=== PATIENT | male | born 1960 | race Caucasian/White ===

== ENCOUNTER 2016-12-30 15:04 | Emergency (ER) | payer BC ==
[~2016-12-30] VITALS: Ht 172.7 cm; Wt 86.5 kg
[~2016-12-30 15:04] MED LIST: METO1TAB71 PO; SIMV40TA2 PO
[2016-12-30 15:10] VITALS: Ht 172.7 cm; Wt 86.5 kg
[2016-12-30] MEDS ORDERED: SOTA120T (15:20)
[2016-12-30] MEDS ORDERED: TPRSR/25 PO (15:20)
[2016-12-30] MEDS ORDERED: LIDOCAINE IV BOLUS & DRIP IV STA (15:23)
--- NOTE | 2016-12-30 15:28 | EMERGENCY ROOM VISIT NOTE ---
History Report prepared by Erwin: Stephanie Dewitt Under the Supervision of: Dr. Joni Lind M.D. First contact with patient: 15:18 Chief Complaint: CHEST PAIN Stated Complaint: CHEST PAIN,HIGH BP Nursing Triage Summary: Pt states substernal cp that started approx 1350. Denies associated sx. States HR at home was 170-180's. Pt has a defib. History of Present Illness The patient is a 56 year old male who presents to the Emergency Room with complaints of constant chest pain beginning 90 minutes prior to arrival. The patient states that his heart rate at home was in the 170-180s. He has had V- Tach episodes before and states that this feels similar. The patient states that he was sitting when the pain came on. He denies dizziness. Patient has a defibrillator. 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 Patient denies dizziness. Review of Systems See HPI for pertinent positives & negatives. A total of 10 systems reviewed and were otherwise negative. Past Medical & Surgical Medical Problems: (1) Ventricular tachycardia (paroxysmal) Family History Patient reports no known family medical history. Social History Smoking Status: Never Smoker Alcohol Use: occasionally Housing Status: lives with family Occupation Status: employed Current/Historical Medications Scheduled Metoprolol Succinate (Metoprolol Succinate ER), 25 MG PO DAILY Simvastatin (Zocor), 40 MG PO HS Sotalol Hcl (Sotalol Hcl), 120 BID Allergies Coded Allergies: No Known Allergies (Verified , 12/30/16) Physical Exam Vital Signs Date Time Temp Pulse Resp B/P Pulse Ox O2 Delivery O2 Flow Rate FiO2 12/30/16 18:31 86 18 122/88 99 12/30/16 17:48 83 20 142/99 98 Room Air 12/30/16 17:20 80 132/93 96 Nasal Cannula 2.0 12/30/16 17:09 83 14 125/91 96 2.0 12/30/16 16:59 84 16 143/96 97 Nasal Cannula 2.0 12/30/16 16:49 84 16 128/91 96 Nasal Cannula 2.0 12/30/16 16:39 84 16 133/91 97 Room Air 2.0 12/30/16 16:30 86 140/89 97 12/30/16 16:19 84 16 135/95 97 2.0 12/30/16 16:09 85 16 132/94 97 Nasal Cannula 2.0 12/30/16 15:59 90 16 141/101 98 Room Air 2.0 12/30/16 15:47 102 16 143/96 97 Nasal Cannula 2.0 12/30/16 15:45 93 143/96 97 12/30/16 15:43 84 12/30/16 15:39 156 16 142/121 98 Nasal Cannula 2.0 12/30/16 15:28 Nasal Cannula 2.0 12/30/16 15:25 160 16 151/98 96 Room Air 12/30/16 15:20 160 12/30/16 15:10 160 18 145/107 96 Room Air Physical Exam GENERAL: Patient is a healthy-appearing well-nourished HEAD: Normocephalic atraumatic EYES: Ocular movements intact pupils equal and react to light OROPHARYNX mucous membranes are moist no exudates present no erythema or edema present NECK: Supple no nuchal rigidity CHEST: Good equal expansion LUNGS: Clear and equal to auscultation CARDIAC: Normal S1 and S2 ABDOMEN: Soft nontender no guarding BACK: No CVA tenderness EXTREMITIES: No pain upon palpation normal muscle strength in all groups no clubbing cyanosis or edema NEURO: Patient is following commands is answering questions appropriately. Alert and oriented x3 Cranial Nerves 2-12 grossly intact Medical Decision & Procedures ER Provider Diagnostic Interpretation: X-ray results as stated below per interpretation by me and the radiologist: CHEST ONE VIEW PORTABLE CLINICAL HISTORY: Chest pain. Hypertension. COMPARISON STUDY: Chest radiograph October 03, 2015. FINDINGS: A left subclavian pacemaker/AICD is in place. No pneumothorax or pleural effusion is present. There is no consolidation or evidence of pulmonary edema. Cardiomediastinal silhouette is stable. IMPRESSION: No acute cardiopulmonary findings. Electronically signed by: Sergio Woods M.D. 12/30/2016 3:39 PM Dictated Date/Time: 12/30/2016 3:38 PM Laboratory Results 12/30/16 15:30 Red Blood Count 5.52, Mean Corpuscular Volume 83.9, Mean Corpuscular Hemoglobin 29.9, Mean Corpuscular Hemoglobin Concent 35.6, Mean Platelet Volume 10.8, Neutrophils (%) (Auto) 62.7, Lymphocytes (%) (Auto) 25.1, Monocytes (%) (Auto) 7.6, Eosinophils (%) (Auto) 3.7, Basophils (%) (Auto) 0.3, Neutrophils # (Auto) 6.87, Lymphocytes # (Auto) 2.75, Monocytes # (Auto) 0.83, Eosinophils # (Auto) 0.40, Basophils # (Auto) 0.03 12/30/16 15:30 Test 12/30/16 15:30 White Blood Count 10.95 K/uL (4.8-10.8) Red Blood Count 5.52 M/uL (4.7-6.1) Hemoglobin 16.5 g/dL (14.0-18.0) Hematocrit 46.3 % (42-52) Mean Corpuscular Volume 83.9 fL (80-100) Mean Corpuscular Hemoglobin 29.9 pg (25-34) Mean Corpuscular Hemoglobin Concent 35.6 g/dl (32-36) Platelet Count 222 K/uL (130-400) Mean Platelet Volume 10.8 fL (7.4-10.4) Neutrophils (%) (Auto) 62.7 % Lymphocytes (%) (Auto) 25.1 % Monocytes (%) (Auto) 7.6 % Eosinophils (%) (Auto) 3.7 % Basophils (%) (Auto) 0.3 % Neutrophils # (Auto) 6.87 K/uL (1.4-6.5) Lymphocytes # (Auto) 2.75 K/uL (1.2-3.4) Monocytes # (Auto) 0.83 K/uL (0.11-0.59) Eosinophils # (Auto) 0.40 K/uL (0-0.5) Basophils # (Auto) 0.03 K/uL (0-0.2) RDW Standard Deviation 40.2 fL (36.4-46.3) RDW Coefficient of Variation 13.2 % (11.5-14.5) Immature Granulocyte % (Auto) 0.6 % Immature Granulocyte # (Auto) 0.07 K/uL (0.00-0.02) Anion Gap 12.0 mmol/L (3-11) Est Creatinine Clear Calc Drug Dose 78.3 ml/min Estimated GFR () 85.3 Estimated GFR (Non- 73.6 BUN/Creatinine Ratio 13.7 (10-20) Calcium Level 9.4 mg/dl (8.5-10.1) Total Bilirubin 0.6 mg/dl (0.2-1) Direct Bilirubin 0.2 mg/dl (0-0.2) Aspartate Amino Transf (AST/SGOT) 31 U/L (15-37) Alanine Aminotransferase (ALT/SGPT) 49 U/L (12-78) Alkaline Phosphatase 64 U/L (45-117) Total Creatine Kinase 119 U/L (39-308) Creatine Kinase MB 1.4 ng/ml (0.5-3.6) Creatine Kinase MB Ratio 1.2 (0-3.0) Troponin I < 0.015 ng/ml (0-0.045) Total Protein 7.8 gm/dl (6.4-8.2) Albumin 3.8 gm/dl (3.4-5.0) Lipase 181 U/L (73-393) Labs reviewed by ED physician. Medications Administered Medications (Trade) Dose Ordered Sig/Esequiel Route Start Time Stop Time Status Last Admin Dose Admin Amiodarone HCL/ Dextrose (Nexterone / D5w) 150 mg STK-MED ONCE .ROUTE 12/30/16 15:29 12/30/16 15:31 DC 12/30/16 15:37 150 MG Amiodarone HCL/ Dextrose (Nexterone / D5w) 360 mg STK-MED ONCE .ROUTE 12/30/16 15:29 12/30/16 15:31 DC 12/30/16 15:46 1 MG ECG Indication: chest pain Rate (beats per minute): 161 Rhythm: sinus tachycardia Findings: no acute ischemic change, no ectopy, other (Lofton Parkinson White) Change: 2nd ECG: Sinus rhythm with PVC, Old septal infarct, rate of 97, no acute ischemic changes. ED Course 1518: Past medical records reviewed. The patient was evaluated in room B1. A complete history and physical examination was performed. 1532: Cordarone Inj 150 mg IV. 1611: Nexterone / D5w 360 mg IV. 1612: I spoke with Dr. Anoop Rodriguez. He would like Dr. Glover to be consulted. 1616: I spoke with Dr. Glover - Cardiology. He said to stop the drip and see how the patient does. 1812: Upon reexamination the patient is hemodynamically stable. I discussed results and treatment plan with the patient. He verbalizes agreement and understanding. The patient is ready for discharge. Medical Decision The patient is a 56 year old male who presents to the ED with complaints of chest pain. Differential diagnosis: Etiologies such as cardiac ischemia, aortic dissection, pulmonary embolism, pneumonia, pneumothorax, musculoskeletal, infections, pericarditis, myocarditis , esophageal rupture, gastrointestinal, as well as others were entertained. This is a 56-year-old male who presents emergency department complaining of palpitations. Patient has a history of pacemaker placed at [facility] 2 months ago. The patient initially presented with what appear to be a wide- complex tachycardia however this converted to what then appeared to be a Sarah- Parkinson-White complex. Based on the patient's EKG he was given an amiodarone bolus in the emergency department which resulted in immediate cardioversion to a normal sinus rhythm. I then discussed the case with Dr. abhishek dale who asked me to discussed with Dr. Glover. . The patient's pacemaker was interrogated. It appears to be functioning normally. The patient does have a follow-up with [place] this week however I stressed the need to follow-up with Dr. Higuera. Patient and are in agreement with the treatment plan. Consults Time Called: 1610 Consulting Physician: Dr. Anoop Rodriguez Returned Call: [address] Anoop Rodriguez. He would like Dr. Glover to be consulted. Additional Consults: Time Called: 1614 Consulted Physician: Dr. Glover - Cardiology Returned Call: 1616 Additional Comments: I spoke with Dr. Glover - Cardiology. He said to stop the drip and see how the patient does. Impression Primary Impression: Palpitations Critical Care I have personally spent greater than 30 minutes of critical care time in the direct management of this patient. This includes bedside care, interpretation of diagnostic studies, and testing, discussion with consultants, patient, and family members, and other required patient management activities. This 30 minutes is in excess of all separately billable procedures. Scribe Attestation The scribe's documentation has been prepared under my direction and personally reviewed by me in its entirety. I confirm that the note above accurately reflects all work, treatment, procedures, and medical decision making performed by me. Departure Information Dispostion Home / Self-Care Referrals Barak Rosado M.D. (PCP) Forms HOME CARE DOCUMENTATION FORM, IMPORTANT VISIT INFORMATION, School Instructions, Work Instructions Patient Instructions ED Palpitations, My [facility] Additional Instructions FOLLOW UP WITH DR HIGUERA'S OFFICE THIS WEEK You have been examined and treated today on an emergency basis only. This is not a substitute for, or an effort to provide, complete comprehensive medical care. It is impossible to recognize and treat all injuries or illnesses in a single emergency department visit. It is therefore important that you follow up closely with DR Malachi Mock. Call as soon as possible for an appointment. Thank you for your time and consideration. I look forward to speaking with you again soon. Please don't hesitate to call us if you have any questions.
[2016-12-30] MEDS ORDERED: AMIODARONE 360MG / 200ML D5W ONE (15:29)
[2016-12-30] MEDS ORDERED: AMIODARONE 150MG / 100ML D5W ONE (15:29)
[2016-12-30] MEDS ORDERED: AMIODARONE HCL INJ 50 MG/ML 3 ML VIAL IV STA (15:32)
[2016-12-30 15:35] LABS: BASO % 0.3 %; BASO ABS # 0.03 K/uL (0-0.2); COMPLETE YES; EOS % 3.7 %; HEMATOCRIT 46.3 % (42-52); IG% 0.6 %; LYMPH % 25.1 %; LYMPH ABS # 2.75 K/uL (1.2-3.4); MEAN CELL VOLUME 83.9 fL (80-100); MEAN CORPUSCULAR HEMOGLOBIN 29.9 pg (25-34); MEAN CORPUSCULAR HGB CONC 35.6 g/dl (32-36); MEAN PLATELET VOLUME 10.8 fL (7.4-10.4); MONO % 7.6 %; NEUT % 62.7 %; PLATELET COUNT 222 K/uL (130-400); RED BLOOD COUNT 5.52 M/uL (4.7-6.1); WHITE BLOOD COUNT 10.95 K/uL (4.8-10.8)
--- NOTE | 2016-12-30 15:40 | DIAGNOSTIC IMAGING REPORT ---
CHEST ONE VIEW PORTABLE CLINICAL HISTORY: Chest pain. Hypertension. COMPARISON STUDY: Chest radiograph October 03, 2015. FINDINGS: A left subclavian pacemaker/AICD is in place. No pneumothorax or pleural effusion is present. There is no consolidation or evidence of pulmonary edema. Cardiomediastinal silhouette is stable. IMPRESSION: No acute cardiopulmonary findings. Electronically signed by: Sergio Woods M.D. 12/30/2016 3:39 PM Dictated Date/Time: 12/30/2016 3:38 PM
[2016-12-30 15:52] LABS: ALT/SGPT 49 U/L (12-78); BLOOD UREA NITROGEN 15 mg/dl (7-18); BUN/CREATININE RATIO 13.7 (10-20); CALCIUM 9.4 mg/dl (8.5-10.1); CARBON DIOXIDE 26 mmol/L (21-32); CHLORIDE 104 mmol/L (98-107); GLUCOSE 109 mg/dl (70-99); POTASSIUM 3.8 mmol/L (3.5-5.1); SODIUM 142 mmol/L (136-145)
[2016-12-30 15:57] LABS: ALKALINE PHOSPHATASE 64 U/L (45-117); AST/SGOT 31 U/L (15-37); CKMB/CK RATIO 1.2 (0-3.0)
[2016-12-30] MEDS ORDERED: AMIODARONE 360MG / 200ML D5W IV STA (16:11)
[2016-12-30 18:31] VITALS: BP 122/88; PULSE 86; O2SAT 99
[2017-03-10] MEDS ORDERED: ASPEC81 PO (08:55)
[2017-03-10] MEDS ORDERED: LPR25 PO (08:55)
== END 2016-12-30 18:32 | disposition home or self-care (01) ==
LOC: C.EDB 15:05
DX: R00.2 Palpitations (principal); Z95.0 Presence of cardiac pacemaker; Z79.899 Other long term (current) drug therapy

== ENCOUNTER → 2017-02-08 | Outpatient (CLI) | payer BC ==
[~2017-02-08] MED LIST changes: +AMIO200T4 PO; +ASPEC81 PO; +LPR25 PO; -METO1TAB71 PO; +SOTA120T; +TPRSR/25 PO
[2017-02-08 13:55] LABS: BLOOD UREA NITROGEN 17 mg/dl (7-18); BUN/CREATININE RATIO 17.7 (10-20); CALCIUM 8.8 mg/dl (8.5-10.1); CARBON DIOXIDE 27 mmol/L (21-32); CHLORIDE 109 mmol/L (98-107); CREATININE 0.95 mg/dl (0.60-1.40); GLUCOSE 92 mg/dl (70-99); POTASSIUM 4.7 mmol/L (3.5-5.1); SODIUM 141 mmol/L (136-145)
[2017-02-08 13:59] LABS: CHOLESTEROL 167 mg/dl (0-200); CHOLESTEROL/HDL RATIO 2.9; HDL CHOLESTEROL 58 mg/dl; TRIGLYCERIDES 80 mg/dl (0-150); VERY LOW DENSITY LIPOPROT CALC 16 mg/dl
== END | disposition home or self-care (01) ==
LOC: C.LABSPEC 12:08
PROVIDERS: ATTEND Internal Medicine
DX: E78.5 Hyperlipidemia, unspecified (principal)

== ENCOUNTER 2017-03-07 19:53 | Inpatient (IN) | payer BC ==
[~2017-03-07] VITALS: Ht 172.7 cm; Wt 85.5 kg
[~2017-03-07 19:53] MED LIST changes: -AMIO200T4 PO; -ASPEC81 PO; -LPR25 PO
[2017-03-07] MEDS ORDERED: SODIUM CHLORIDE 0.9% 500ML 500 ML IV STA (20:00)
[2017-03-07] MEDS ORDERED: AMIODARONE 360MG / 200ML D5W IV STA (20:00)
[2017-03-07] MEDS ORDERED: SODIUM CHLORIDE 0.9% 1000ML 1,000 ML IV STA (20:00)
[2017-03-07] MEDS ORDERED: AMIODARONE 150MG / 100ML D5W IV STA (20:01)
--- NOTE | 2017-03-07 20:14 | EMERGENCY ROOM VISIT NOTE ---
History Report prepared by Erwin: Howard Colmenares Under the Supervision of: Dr. Ahsan Tay D.O. First contact with patient: 19:53 Chief Complaint: CARDIAC ASSESSMENT Stated Complaint: VTACH/ DEFIBRILLATOR IS FIRING History of Present Illness The patient is a 56 year old male who presents to the Emergency Room with complaints of persistent tachycardia throughout the day today. The patient has an AICD that shocked him three times today. He was feeling completely fine yesterday. EMS notes that the patient was in V-tach en route. The patient denies chest pain, shortness of breath, leg pain or swelling. He has had the defibrillator since this past October. The patient follows up with Dr. Higuera, [facility] Litigation Paralegal. The patient was started on amiodarone at 1500 today which was ordered by Dr. Higuera, however he did not see him today. He did not receive any of the amiodarone in the ambulance en route to the ED. He was on Metoprolol and Sotalol prior to today. Today was meant to be his last dose of Sotalol. He did not miss any of his medications today. He denies recent weight changes. The patient is s/p ablation x 2 that was performed at [place]. He is not on any blood thinners. His primary care physician is Dr. Barnett. Source of History: patient, EMS Onset: today Position: other (heart) Quality: other (tachycardia) Timing: other (persistent) Associated Symptoms: No SOB, No chest pain Review of Systems See HPI for pertinent positives & negatives. A total of 10 systems reviewed and were otherwise negative. Past Medical & Surgical Medical Problems: (1) VENTRICULAR TACHYCARDIA (2) Ventricular tachycardia (paroxysmal) Family History No pertinent family history Social History Occupation Status: employed Current/Historical Medications Scheduled Amiodarone Hcl (Cordarone), 200 MG PO DIRECTED Metoprolol Succinate (Metoprolol Succinate ER), 25 MG PO DAILY Simvastatin (Zocor), 40 MG PO HS Sotalol Hcl (Sotalol Hcl), 120 BID Allergies Coded Allergies: No Known Allergies (Verified , 03/07/17) Physical Exam Vital Signs Date Time Temp Pulse Resp B/P Pulse Ox O2 Delivery O2 Flow Rate FiO2 03/07/17 22:38 74 108/83 03/07/17 22:30 108/83 03/07/17 22:20 76 99 03/07/17 22:15 68 96 03/07/17 22:10 117/78 03/07/17 22:05 71 98 03/07/17 22:00 114/74 03/07/17 21:55 76 97 03/07/17 21:50 112/77 03/07/17 21:45 75 98 03/07/17 21:40 123/79 03/07/17 21:35 77 97 03/07/17 21:30 119/78 03/07/17 21:28 77 98 03/07/17 21:20 114/84 03/07/17 21:18 78 98 03/07/17 21:10 117/82 03/07/17 21:08 80 97 03/07/17 21:00 120/83 03/07/17 20:58 79 98 03/07/17 20:50 129/81 03/07/17 20:48 78 98 03/07/17 20:43 77 99 03/07/17 20:40 129/84 03/07/17 20:35 80 126/81 03/07/17 20:33 79 98 03/07/17 20:30 128/81 03/07/17 20:30 83 03/07/17 20:23 81 100 03/07/17 20:20 126/85 03/07/17 20:13 168 96 03/07/17 20:10 110/69 03/07/17 20:03 177 98 03/07/17 19:58 178 03/07/17 19:57 137/115 03/07/17 19:53 100 Room Air 03/07/17 19:53 36.8 184 18 137/115 97 Room Air 03/07/17 19:53 100 Room Air 03/07/17 19:53 100 Room Air Physical Exam GENERAL: Patient is awake, alert, very anxious appearing, appears to be in moderate distress. EYES: The conjunctivae are clear. The pupils are round and reactive. EARS, NOSE, MOUTH AND THROAT: The nose is without any evidence of any deformity. Mucous membranes are moist tongue is midline NECK: The neck is nontender and supple. RESPIRATORY: Normal respiratory effort is noted there is no evidence of wheezing rhonchi or rales CARDIOVASCULAR: Regular and tachycardic, no definite murmur noted to auscultation. GASTROINTESTINAL: The abdomen is soft. Bowel sounds are present in all quadrants. Abdomen is nontender MUSCULOSKELETAL/EXTREMITIES: There is no evidence of gross deformity full range of motion is noted in the hips and shoulders SKIN: Skin is cool to touch and diaphoretic, no significant edema noted. NEUROLOGIC: Patient is awake alert and oriented x3. Medical Decision & Procedures ER Provider Diagnostic Interpretation: X-ray results as stated below per interpretation by me and the radiologist. CHEST ONE VIEW PORTABLE HISTORY: EVALUATE RESPIRATORY DISTRESS.DYSPNEA COMPARISON: Chest 12/30/2016. FINDINGS: The lungs are clear. Cardiac silhouette is normal in size. No pleural effusions. No pneumothorax. Left-sided single lead pacemaker/defibrillator. There are defibrillator pads overlying the left hemithorax. IMPRESSION: No acute process. Electronically signed by: Eric Orr M.D. 03/07/2017 8:39 PM Dictated Date/Time: 03/07/2017 8:38 PM Laboratory Results Test 03/07/17 20:39 Prothrombin Time 10.7 SECONDS (9.0-12.0) Prothromb Time International Ratio 1.0 (0.9-1.1) Activated Partial Thromboplast Time 27.5 SECONDS (21.0-31.0) Partial Thromboplastin Ratio 1.1 Total Bilirubin 0.7 mg/dl (0.2-1) Aspartate Amino Transf (AST/SGOT) 46 U/L (15-37) Alanine Aminotransferase (ALT/SGPT) 133 U/L (12-78) Alkaline Phosphatase 65 U/L (45-117) Total Protein 6.6 gm/dl (6.4-8.2) Albumin 3.4 gm/dl (3.4-5.0) Globulin 3.2 gm/dl (2.5-4.0) Albumin/Globulin Ratio 1.1 (0.9-2) Thyroid Stimulating Hormone (TSH) 1.860 uIu/ml (0.300-4.500) Free Thyroxine 1.25 ng/dl (0.80-1.60) Laboratory results per my review. Medications Administered Medications (Trade) Dose Ordered Sig/Esequiel Route Start Time Stop Time Status Last Admin Dose Admin Sodium Chloride 500 ml @ 999 mls/hr Q31M STAT IV 03/07/17 20:00 03/07/17 20:30 DC 03/07/17 20:19 999 MLS/HR Sodium Chloride (Nss 1000ml) 1,000 ml @ 125 mls/hr Q8H STAT IV 03/07/17 20:00 03/08/17 01:04 DC 03/07/17 20:49 125 MLS/HR Amiodarone HCL/ Dextrose (Nexterone / D5w) 360 mg UD STAT IV 03/07/17 20:00 03/07/17 20:01 DC 03/07/17 20:18 360 MG Amiodarone HCL/ Dextrose (Nexterone / D5w) 150 mg NOW STAT IV 03/07/17 20:01 03/07/17 20:02 DC 03/07/17 20:11 150 MG Metoprolol Tartrate (Lopressor Iv) 2.5 mg NOW STAT IV 03/07/17 20:19 03/07/17 20:20 DC 03/07/17 20:35 2.5 MG Potassium Chloride (Klor-Con M10) 30 meq NOW STAT PO 03/07/17 22:29 03/07/17 22:33 DC 03/07/17 22:38 30 MEQ Metoprolol Tartrate (Lopressor Iv) 2.5 mg NOW STAT IV 03/07/17 22:29 03/07/17 22:33 DC 03/07/17 22:38 2.5 MG ECG Indication: tachycardia Rate (beats per minute): 181 Rhythm: other (wide complex ) Findings: LBBB (favored), other (likely consistent with previous ventricular tachycardia) Change: Repeat EKG: Normal sinus rhythm at 82, no acute ST segment abnormalities, no ectopy, no change compared to Dec 30 2016. ED Course 1953: The patient was evaluated in room B1. A complete history and physical examination were performed. 2000: Amiodarone HCl / Dextrose 360 mg IV, NSS 1000 ml @ 125 mls/hr, NSS 500 ml @ 999 mls/hr. 2001: Amiodarone HCl / Dextrose 150 mg IV. 2006: Amiodarone started through IV. 2011: Discussed the case with Dr. Sparrow, Litigation Paralegal. Recommended Lopressor. 2019: Lopressor 2.5 mg IV. 2019: Patient is back in normal sinus rhythm. 2156: Discussed the case with Dr. Barnett, Sonar Watchstander. The patient will be evaluated. Medical Decision Prior records/ancillary studies reviewed. Triage Nursing notes reviewed. The patient's history was concerning for palpitations. Differential diagnosis: Etiologies such as premature contractions, electrolyte abnormality, cardiac dysrhythmia, thyroid dysfunction, pulmonary embolism, infection, gastrointestinal, as well as others were entertained. The patient is a 56-year-old male who presented to the emergency department for an evaluation of palpitations and ventricular tachycardia. The patient is a history of ventricular tachycardia his defibrillator went off 3 times today. 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 He was started on amiodarone in the ambulance and this was continued in the emergency department. He was also given a fluid bolus. The patient's condition was discussed with his primary cardiology group. I also discussed his case with his primary care physician. The patient's condition significantly improved. The ventricular tachycardia was replaced with mostly sinus rhythm with small runs of nonsustained ventricular tachycardia. I discussed the patient's laboratory and radiographic studies with him. Consults Time Called: 1999 Consulting Physician: Dr. Sparrow, Litigation Paralegal. Returned Call: 2011 2011: Discussed the case with Dr. Sparrow, Litigation Paralegal. Additional Consults: Time Called: 2144 Consulted Physician: Dr. Barnett, Sonar Watchstander Returned Call: 2156 Additional Comments: 2156: Discussed the case with Dr. Barnett, Sonar Watchstander. The patient will be evaluated. Recommended Lopressor. Impression Primary Impression: Ventricular tachycardia Additional Impressions: Palpitations Elevated troponin Critical Care I have personally spent greater than 45 minutes of critical care time in the direct management of this patient. This includes bedside care, interpretation of diagnostic studies, and testing, discussion with consultants, patient, and family members, and other required patient management activities. This 45 minutes is in excess of all separately billable procedures. Scribe Attestation The scribe's documentation has been prepared under my direction and personally reviewed by me in its entirety. I confirm that the note above accurately reflects all work, treatment, procedures, and medical decision making performed by me. Departure Information Dispostion Being Evaluated By Hospitalist Patient Instructions My [facility] Problem Qualifiers
[2017-03-07] MEDS ORDERED: METOPROLOL TARTRATE 1 MG/ML VIAL IV STA ×2 (20:19→22:29)
[2017-03-07] MEDS ORDERED: AMIO200T4 PO (20:33)
--- NOTE | 2017-03-07 20:42 | DIAGNOSTIC IMAGING REPORT ---
CHEST ONE VIEW PORTABLE HISTORY: EVALUATE RESPIRATORY DISTRESS.DYSPNEA COMPARISON: Chest 12/30/2016. FINDINGS: The lungs are clear. Cardiac silhouette is normal in size. No pleural effusions. No pneumothorax. Left-sided single lead pacemaker/defibrillator. There are defibrillator pads overlying the left hemithorax. IMPRESSION: No acute process. Electronically signed by: Eric Orr M.D. 03/07/2017 8:39 PM Dictated Date/Time: 03/07/2017 8:38 PM
[2017-03-07 20:48] LABS: BASO % 0.3 %; BASO ABS # 0.02 K/uL (0-0.2); COMPLETE YES; EOS % 2.1 %; HEMATOCRIT 43.2 % (42-52); IG% 0.3 %; LYMPH % 21.4 %; LYMPH ABS # 1.64 K/uL (1.2-3.4); MEAN CELL VOLUME 86.4 fL (80-100); MEAN CORPUSCULAR HEMOGLOBIN 30.4 pg (25-34); MEAN CORPUSCULAR HGB CONC 35.2 g/dl (32-36); MONO % 9.2 %; NEUT % 66.7 %; PLATELET COUNT 179 K/uL (130-400); WHITE BLOOD COUNT 7.68 K/uL (4.8-10.8)
[2017-03-07 20:58] LABS: PARTIAL THROMBOPLASTIN RATIO 1.1; PROTHROMBIN TIME (PATIENT) 10.7 SECONDS (9.0-12.0)
[2017-03-07 21:05] LABS: BUN/CREATININE RATIO 14.6 (10-20); CREATININE 1.1 mg/dl (0.60-1.40); MAGNESIUM 2.1 mg/dl (1.8-2.4); POTASSIUM 3.4 mmol/L (3.5-5.1)
[2017-03-07 21:13] LABS: CALCIUM 8.7 mg/dl (8.5-10.1)
[2017-03-07 21:20] LABS: ALB/GLOB RATIO 1.1 (0.9-2); THYROID STIMULATING HORMONE 1.86 uIu/ml (0.300-4.500)
[2017-03-07] MEDS ORDERED: POTASSIUM CHLORIDE 10 MEQ TABCR PO STA (22:29)
[2017-03-07] MEDS ORDERED: ACETAMINOPHEN 325 MG TAB PO PRN (22:30)
[2017-03-07] MEDS ORDERED: AMIODARONE IV BOLUS / DRIP IV STA (22:30)
[2017-03-07] MEDS ORDERED: LORAZEPAM 0.5 MG TAB PO PRN (22:45)
--- NOTE | 2017-03-07 23:51 | HISTORY & PHYSICAL EXAMINATION ---
DATE OF ADMISSION: 03/07/2017 A 56-year-old male admitted through the Emergency Room with recurrent ventricular tachycardia. PRESENT ILLNESS: The patient with known recurrent ventricular tachycardia, first diagnosed in 09/2015. He was admitted to [facility] at that time on 10/03/2015 with ventricular tachycardia and recurrent episodes of lightheadedness. At that time, he was seen in cardiology consultation by Dr. Sparrow and Dr. Hong. The patient was thought to have right-sided ventricular tachycardia and he was treated with metoprolol. Subsequently, the patient was seen by Dr. Higuera. He was referred to [facility]. He had an extensive workup done. He had a cardiac catheterization which showed normal coronaries. He had a defibrillator implanted in 10/2016. He also had an ablation procedure at that time and he had another ablation procedure just within the last 2 months. The patient continues to be seen and followed very closely by Dr. Higuera. The patient stated that on Saturday, 2 days ago, he was cutting grass outside and he did experience an episode where he realized that the defibrillator discharged. Yesterday, Saturday, he was doing fine throughout the day but today he had multiple episodes and his defibrillator fired on 3 separate occasions. Ambulance was called. The patient was brought to the Emergency Room. He was found to be in ventricular tachycardia. His rate was under control. It remained in the 70s and 60s, but he was in ventricular tachycardia. He felt some lightheadedness with these episodes, but he had no chest pain, no headache, no syncope, no abdominal pain, no nausea or any other associated symptoms. Earlier today, the patient was in touch with Dr. Higuera. He was on sotalol, so Dr. Higuera did discontinue his sotalol and he started him on amiodarone loading dose today. He received a total of 800 mg in 2 separate doses. He was also on simvastatin but that was discontinued because of the addition of amiodarone. He was continued on metoprolol succinate 25 mg daily. In the Emergency Room, the patient was evaluated by Dr. Tay. He was started on IV amiodarone. Dr. Tay did speak with Dr. Sparrow who was on-call for Dr. Higuera. Dr. Sparrow recommended a dose of metoprolol tartrate 2.5 mg IV which was administered. At this time, the patient is resting comfortably. He is in a sinus rhythm but he continues to have short episodes of ventricular tachycardia, 2, 3 and 4 beats that I was able to observe on the monitor while I was in his room, but he is completely asymptomatic. The patient is continued on amiodarone IV for now. He is being admitted to PCU with telemetry for further evaluation and cardiology consultation and adjustments of his medications and decision whether the patient will need to be transferred back to [facility], but I will leave that up to Dr. Higuera when he sees him in the morning. PAST MEDICAL HISTORY: 1. Ventricular tachycardia as noted above with the first detected episode on 10/03/2015 which required hospitalization. Initially treated with metoprolol. Subsequently, he has had a defibrillator. He had a cardiac catheterization which showed normal coronary arteries. He had 2 ablation procedures and unfortunately he continued to have recurrent episodes of ventricular tachycardia. 2. Hypercholesterolemia, treated. He has been on simvastatin 40 mg daily and his numbers have been well controlled. He was taking simvastatin up until today when it was discontinued because of the addition of amiodarone. 3. History of elevated PSA. He has had a urology consultation in the past and had prostate biopsies which were benign. 4. History of colonic polyps. All benign. Consistent with tubular adenomas. SOCIAL HISTORY: He is . He has 2 children. He denied any smoking or alcohol or any drugs. No excessive coffee, tea or soft drinks. He is still working, he works with the [employer]. FAMILY HISTORY: His mother is in her 80s. She has type 2 diabetes mellitus, on insulin, arterial hypertension, hypothyroidism, osteoarthritis. She also has a history of breast cancer. She is doing quite well. His father at age 54, had a pulmonary embolism, this was back in 1986. One brother in 2000 at age 54 in a motorcycle accident. One brother has aortic valve replacement. He had a bicuspid valve. He was 60 years old at that time. His family history is significant for coronary artery disease and ventricular arrhythmias and cardiomyopathy and also for hemochromatosis. ALLERGIES: None. CURRENT MEDICATIONS: As noted, today his sotalol was discontinued, he was started on amiodarone. His simvastatin was discontinued. He was continued on metoprolol succinate 25 mg daily. REVIEW OF SYSTEMS: Overall, he has been doing quite well since his last ablation. He has not had any problem as far as any headache or dizziness or lightheadedness. The lightheadedness occurs only with his episodes of ventricular tachycardia, but no syncope. No chest pain, pressure or tightness. No shortness of breath. No abdominal pain, no nausea, no vomiting. No problem with his bowel movements. No problem urinating. No pain in his back or extremities. PHYSICAL EXAMINATION: GENERAL: Well developed, in no acute distress. He is resting quite comfortably. His recorded weight is 88.1 kg, height 172.7 cm, BMI 29.5. VITAL SIGNS: On arrival to the Emergency Room, his blood pressure was 137/115, his pulse rate was 184, respiration 18, temperature 36.8, oxygen saturation was 100% on room air. Subsequently, his heart rate came down to 81. His blood pressure came down to 110/69. His heart rate and blood pressure remain in normal range since his arrival. SKIN: Warm and dry. No rash. HEENT: He usually wears glasses, not at this time. No mucosal abnormalities in his nose, mouth or throat. NECK: Supple. Nontender. No adenopathy, no thyromegaly. No JVD. No carotid bruit. CHEST: Defibrillator in place. HEART: Regular heart sounds. Short runs of ventricular tachycardia as noted. No murmur, rub or gallop. LUNGS: Clear. ABDOMEN: Soft, nontender, without organomegaly or masses. BACK: No spinal tenderness. EXTREMITIES: No edema, clubbing or cyanosis. No joint or muscle tenderness. Good pulses except for absent right dorsalis pedis pulse. NEUROLOGIC: He is alert and oriented. There is no evidence of any deficit. LABORATORY TESTS: WBC count 7680, hemoglobin 15.1, hematocrit 43.2, platelet count 179,000. Prothrombin time 10.7, INR 1.0, PTT 27.5. Sodium 143, potassium 3.4, chloride 111, CO2 23, BUN 16, creatinine 1.1, glucose 143, calcium 8.7, magnesium 2.1, total bilirubin 0.7, AST 46, ALT 133, alkaline phosphatase 65, total protein 6.6, albumin 3.4. TSH 1.860, free T4 1.25. Troponin I 0.118. His chest x-ray showed no acute process. Defibrillator noted in place. ECG showed ventricular tachycardia at 181 bpm. ASSESSMENT: 1. Recurrent ventricular tachycardia. 2. Status post implant of a pacer defibrillator in 10/2016. 3. Hyperlipidemia. 4. History of elevated PSA with negative prostate biopsy. 5. History of colonic polyp. 6. Minimal hypokalemia. 7. Elevated troponin I, most likely related to demand. PLAN: The patient was admitted to PCU with telemetry. Resuscitation level 1. As noted in the Emergency Room, he was started on IV amiodarone and he was given a dose of metoprolol tartrate 2.5 mg IV. I ordered one dose of potassium chloride 30 mEq p.o. and an additional dose of metoprolol tartrate 2.5 mg IV. His heart rate slowed down to the 60s. At this point, I do not observe any ventricular arrhythmias on the monitor, he is completely in a sinus rhythm. The patient will be admitted to PCU with telemetry. Resuscitation level 1. All his laboratory tests were ordered. Cardiac isoenzymes and serial electrocardiograms ordered. As far as medications, he will be continued on the continuous IV amiodarone protocol. Also, he will be given metoprolol tartrate 2.5 mg every 6 hours. Cardiology consultation was requested from Dr. Higuera. He will see him in the morning and decide on further treatment and further recommendation. I spoke with Mr. Valladares and his who was at his bedside. They both understand the situation and what we are doing at this point. He seems to be quite comfortable. IRMA
[2017-03-08] VITALS (7 sets, daily range): BP systolic 117–136; BP diastolic 78–90; PULSE 65–73; TEMP 36.3–36.8; O2SAT 97–100; Ht 172.7 cm; Wt 85.5 kg
[2017-03-08] MEDS ORDERED: METOPROLOL TARTRATE 1 MG/ML VIAL ONE (00:55)
[2017-03-08] MEDS: METOPROLOL TARTRATE 1 MG/ML VIAL IV. SCH ×2 (00:56→06:08)
[2017-03-08] MEDS: SODIUM CHLORIDE 0.9% 1000ML 1,000 ML IV SCH ×3 (01:04→20:28)
[2017-03-08 01:28] LABS: CKMB/CK RATIO 1.6 (0-3.0)
[2017-03-08] MEDS: AMIODARONE / D5W 200 ML IV SCH ×2 (02:10→14:01)
[2017-03-08 07:23] LABS: BASO % 0.1 %; BASO ABS # 0.01 K/uL (0-0.2); COMPLETE YES; IG% 0.2 %; LYMPH % 18.2 %; LYMPH ABS # 1.49 K/uL (1.2-3.4); MEAN CELL VOLUME 87.3 fL (80-100); MEAN CORPUSCULAR HEMOGLOBIN 30.1 pg (25-34); MEAN CORPUSCULAR HGB CONC 34.5 g/dl (32-36); MEAN PLATELET VOLUME 11.1 fL (7.4-10.4); MONO % 6.5 %; PLATELET COUNT 185 K/uL (130-400); RED BLOOD COUNT 4.81 M/uL (4.7-6.1)
[2017-03-08 07:55] LABS: BUN/CREATININE RATIO 14.4 (10-20); CALCIUM 8.2 mg/dl (8.5-10.1); CREATININE 0.94 mg/dl (0.60-1.40); MAGNESIUM 2.2 mg/dl (1.8-2.4); POTASSIUM 3.9 mmol/L (3.5-5.1)
[2017-03-08 08:07] LABS: CKMB/CK RATIO 1.1 (0-3.0)
[2017-03-08] MEDS: ASPIRIN 81 MG ECTAB PO SCH (08:07)
[2017-03-08] MEDS: POTASSIUM CHLORIDE 20 MEQ TABCR PO SCH ×2 (08:07→20:29)
--- NOTE | 2017-03-08 08:37 | PROGRESS NOTE ---
DATE: 03/08/2017 DATE: 03/08/2017. SUBJECTIVE: A 56-year-old male admitted with recurrent ventricular tachycardia. The patient has had 2 ablation procedures in the past at [facility], he also has a pacer defibrillator in place. The patient was admitted. In the Emergency Room, he was started on IV amiodarone. Dr. Higuera just changed his medication yesterday and he gave him the first oral dose. He received 2 doses of 400 mg each. He came to the Emergency Room after his pacer fired on 3 separate occasions. The patient had a restful night, uneventful. He denied any headache or dizziness or lightheadedness. Denied any chest pain, no shortness of breath. No abdominal pain, no nausea, no vomiting. No pain in his back or extremities. PHYSICAL EXAMINATION: GENERAL: Well developed in no distress. VITAL SIGNS: Blood pressure 132/80, pulse 69, respiration 18, temperature 36.8, oxygen saturation 97% on room air. SKIN: Warm and dry. No rash. HEAD, EYES, EARS, NOSE, AND THROAT: No evidence of any mucosal abnormality. NECK: Supple. Nontender. No lymph node or thyroid enlargement. No JVD. CHEST: Pacer defibrillator in place. HEART: Regular heart sounds. No evident murmur, rub, or gallop. LUNGS: Clear. ABDOMEN: Soft, nontender. No organomegaly or masses. BACK: No spinal tenderness. EXTREMITIES: No edema, clubbing, or cyanosis. Review of his rhythm through the night, he has remained in sinus rhythm. He had multiple episodes where he had 2 and on very occasional 3-beat ventricular beats, but he is completely asymptomatic. LABORATORY TESTS: WBC count 8,200, hemoglobin 14.5, hematocrit 42%, platelet count 185,000. Sodium 144, potassium 3.9, chloride 114, CO2 23, BUN 14, creatinine 0.94, glucose 104, calcium 8.2, magnesium 2.2. His troponin I was 0.118 on admission. It was checked every 6 hours. The second number was 0.195 and the one from this morning is starting to drift down to 0.165. His electrocardiogram this morning showed a sinus rhythm. He had ventricular arrhythmias 2 successive beats noted on his tracing. ASSESSMENT: 1. Recurrent ventricular tachycardia. 2. Hyperlipidemia. He was on simvastatin but that was discontinued just yesterday by Dr. Higuera because he was started on amiodarone. 3. Minimal hypokalemia, it was 3.4 on admission and it was corrected. PLAN: 1. Continuing the same medications. He is on the IV amiodarone and he is also receiving metoprolol tartrate 2.5 mg IV every 6 hours. 2. Cardiology consultation has been requested. The patient will be seen by Dr. Higuera this morning. He will decide on further course of his treatment for his ventricular tachycardia. He already stopped his sotalol yesterday and started him on the oral amiodarone and I expect that this is the medication he is going to be using. 3. His condition is stable. He is completely asymptomatic.
--- NOTE | 2017-03-08 10:04 | CARDIOLOGY CONSULTATION ---
DATE OF CONSULTATION: 03/08/2017 REQUESTING: Dr. Barnett. Dear Dr. Barnett: It was a pleasure to see Fredy today in consultation with regard to his recurrent ventricular tachycardia status post ICD shock x3. As you know, he has a very complex cardiac arrhythmia with recurrent ventricular tachycardia. This past weekend he had additional episodes of nonsustained VT on his monitor. In addition, received one episode of ATP. We were notified again on Saturday that he was having additional ventricular arrhythmias. In discussion with the EP service at [facility], a decision was made to have him stop his sotalol on morning and switch him over to amiodarone with loading of 400 mg t.i.d. for 5 days. His had contacted us at 3:00 in the afternoon, noting that he just did not feel well and he was feeling palpitations and felt like he had received ATP again. I instructed her to give him an additional dose of amiodarone 4 hours later with the first dose at 3:00 in the afternoon, the second dose at 7:00 p.m. Around 7:00 p.m., his defibrillator actually shocked him x3 and he was brought to the Emergency Room for further evaluation. In the Emergency Room, his EKG reveals a wide complex tachycardia at 181 beats per minute with a left bundle morphology. He was given IV amiodarone and beta blockers and converted back to sinus rhythm and he is currently on IV amiodarone, resting comfortably. He notes he is fatigued, but outside of that, he denies any chest pain, chest pressure, chest heaviness. He denies any shortness of breath, PND, orthopnea. He denies any current palpitations or lightheadedness. Yesterday, with his palpitations, he did feel lightheadedness and did feel weak. There was no loss of consciousness. He denies any bleeding, bruising, dark stools, black stools, fevers, chills, sweats, cough productive of sputum. Rest review of systems otherwise negative. PAST MEDICAL HISTORY: 1. Symptomatic monomorphic ventricular tachycardia at rate of 220 beats per minute. By EP study, it was left-sided, just under the aortic valve, with the first ablation in 10/2016. 2. Status post second VT ablation from both the right ventricle and the left ventricle, involving the same portion of the interventricular septum, 12/2016, with recurrent symptomatic monomorphic VT, discharged on Tikosyn. 3. Mild nonischemic cardiomyopathy with an ejection fraction in the range of 45-50%. 4. Cardiac MRI with a mildly dilated left ventricle, EF 43%, with diffuse global hypokinesis. 5. Status post single-chamber defibrillator with a St. Teto Ellipse VR next generation device. 6. Family history of cardiomyopathy. 7. Significant fatigue, on high-dose beta blockers. 8. No evidence of epicardial coronary artery disease by cardiac catheterization 10/2016. FAMILY HISTORY: He had a brother who of congestive heart failure secondary to hemochromatosis. He has another brother who has aortic stenosis and cardiomyopathy and atrial fibrillation. His dad at 55 from blood clots. Mom is living in her 80s with palpitations. SOCIAL HISTORY: Denies any tobacco or alcohol. He is . He rarely drinks alcohol. 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 Of note, he has to climb ladders and often is working more than 200 feet above the ground. ALLERGIES: No known drug allergies. MEDICATIONS: Reviewed in electronic medical record. PHYSICAL EXAMINATION: GENERAL: He is awake, alert, oriented x3. He does appear fatigued this morning. VITAL SIGNS: His heart rate is 69, his respirations are 18, his blood pressure 132/80, his sats 97%. HEENT: Mildly reduced carotid upstrokes. No evidence of carotid bruits. Jugular venous pressure appeared normal. Sclerae are anicteric. His hearing is normal. LUNGS: Clear to auscultation bilaterally. No rales, rhonchi or wheezing. HEART: Regular rate and rhythm. No murmurs, rubs or gallops. ABDOMEN: Soft, nontender, nondistended, positive bowel sounds. EXTREMITIES: No clubbing, cyanosis or edema. PSYCHIATRIC: His affect appeared appropriate. EARLY CHILDHOOD EDUCATION COORDINATOR: Last evening the longest run he had was a 6-beat run of nonsustained VT. Today, he has just had ventricular couplets. LABORATORY STUDIES: His CBC is normal. His BMP is normal with the exception of his potassium, initially it was 3.4, it was 3.9 this morning. His troponin peaked at 0.195. His TSH and free T4 are normal. His coags are normal. Chest x-ray was read as no active disease. EKG: Wide complex tachycardia at 181 beats per minute with a left bundle morphology. IMPRESSION: 1. Recurrent symptomatic monomorphic ventricular tachycardia. 2. Status post ICD shock x3. 3. Mild nonischemic cardiomyopathy. 4. Single chamber defibrillator with a St. Teto Ellipse. 5. No evidence of epicardial coronary artery disease by cardiac catheterization 10/2016. 6. Failure to suppress his ventricular arrhythmias with Tikosyn. My recommendation would be to continue with IV amiodarone and I would overlap oral and IV for 48 hours. I would start oral amiodarone 400 mg t.i.d. in addition to his IV amiodarone and continue that today and tomorrow, and if he has no recurrent ventricular arrhythmias, he could be discharged on Saturday morning. If there is room for beta blockers based on his heart rate and blood pressure as he is currently on beta blockers, I would continue with them as well. 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 I have asked him to determine what his benefits would be with short-term and long-term disability as this will be an important part of consideration as to whether he can or cannot work long-term, especially if we are financially going to make their lives more difficult if we consider disability. I would keep is K+ >4.0 and his Mg >2.0. Additionally, if he has recurrent ventricular tachycardia on amiodarone, at that point we would have to consider a third VT ablation. At this point, the EP service and Fredy are not ready to proceed with another ablation. I will continue to follow with you. Thank you for allowing us to participate in his care. IRMA
[2017-03-08] MEDS: AMIODARONE 200 MG TAB PO SCH ×3 (10:20→21:53)
[2017-03-08] MEDS: METOPROLOL TARTRATE 25 MG TAB PO SCH ×2 (10:20→20:29)
[2017-03-08 13:07] LABS: CKMB/CK RATIO 0.8 (0-3.0)
[2017-03-09] VITALS (8 sets, daily range): BP systolic 131–144; BP diastolic 79–85; PULSE 68–76; TEMP 36.5–36.9; O2SAT 95–99
[2017-03-09] MEDS: AMIODARONE / D5W 200 ML IV SCH ×2 (02:58→12:25)
[2017-03-09] MEDS: SODIUM CHLORIDE 0.9% 1000ML 1,000 ML IV SCH ×2 (05:49→16:28)
[2017-03-09 06:25] LABS: BASO % 0.3 %; BASO ABS # 0.03 K/uL (0-0.2); COMPLETE YES; EOS % 1.6 %; HEMATOCRIT 43.6 % (42-52); IG% 0.3 %; LYMPH % 16.7 %; LYMPH ABS # 1.48 K/uL (1.2-3.4); MEAN CELL VOLUME 87.4 fL (80-100); MEAN CORPUSCULAR HEMOGLOBIN 30.1 pg (25-34); MEAN CORPUSCULAR HGB CONC 34.4 g/dl (32-36); MEAN PLATELET VOLUME 10.7 fL (7.4-10.4); MONO % 8.5 %; NEUT % 72.6 %; PLATELET COUNT 182 K/uL (130-400); RED BLOOD COUNT 4.99 M/uL (4.7-6.1); WHITE BLOOD COUNT 8.85 K/uL (4.8-10.8)
[2017-03-09 07:04] LABS: BUN/CREATININE RATIO 9.4 (10-20); CALCIUM 8.5 mg/dl (8.5-10.1); CREATININE 0.92 mg/dl (0.60-1.40); MAGNESIUM 2.2 mg/dl (1.8-2.4); POTASSIUM 3.9 mmol/L (3.5-5.1)
[2017-03-09] MEDS: AMIODARONE 200 MG TAB PO SCH ×3 (07:29→19:54)
[2017-03-09] MEDS: ASPIRIN 81 MG ECTAB PO SCH (07:29)
[2017-03-09] MEDS: METOPROLOL TARTRATE 25 MG TAB PO SCH ×2 (07:30→19:50)
[2017-03-09] MEDS: POTASSIUM CHLORIDE 20 MEQ TABCR PO SCH ×2 (07:30→19:54)
--- NOTE | 2017-03-09 10:23 | PROGRESS NOTE ---
DATE: 03/09/2017 A 56-year-old male admitted with recurrent ventricular tachycardia. The patient has had 2 ablation procedures in the past and he also has a pacer defibrillator in place. He does see Dr. Higuera in his cardiology followup and the procedures have been done at [facility]. The patient was admitted. Dr. Higuera started him on loading dose of amiodarone the day he was admitted and he had 2 doses of 400 mg each. After admission, he was started on IV amiodarone. He was seen in cardiology consultation by Dr. Higuera. Oral amiodarone was ordered in addition to his IV amiodarone to overlap for 48 hours. He is also on metoprolol, initially it was given to him IV and then Dr. Higuera changed it to metoprolol tartrate 25 mg twice a day. Overall, he has been doing well. He denied any headache or dizziness or lightheadedness. No chest pain, no shortness of breath. No abdominal pain, no nausea, no vomiting. Tolerating his diet. No pain in his back or extremities. He has been ambulating in the hallway without any problem. Review of his monitor showed runs of 4-beat V-tach over the last 24 hours only. He does have isolated PVCs and also 2 PVCs in succession. PHYSICAL EXAMINATION: GENERAL: Well developed, in no distress. VITAL SIGNS: Blood pressure 144/85, pulse 68, respiration 18, temperature 36.9, oxygen saturation 95% on room air. SKIN: Warm and dry. No rash. HEENT: No mucosal abnormality. NECK: No JVD. No adenopathy. HEART: Regular heart sounds. No evident murmur, rub or gallop. LUNGS: Clear. ABDOMEN: Soft and benign. BACK: No spinal tenderness. EXTREMITIES: No edema, clubbing or cyanosis. TODAY'S LABORATORY TESTS: WBC count 8850, hemoglobin 15, hematocrit 43.6, platelet count 182,000. Sodium 144, potassium 3.9, chloride 113, CO2 23, BUN 9, creatinine 0.92, glucose 100, calcium 8.5, magnesium 2.2. ASSESSMENT: 1. Recurrent ventricular tachycardia. 2. Mild cardiomyopathy. PLAN: 1. Continuing amiodarone, both IV and oral for another 24 hours. 2. Continue ambulation. 3. Continuing metoprolol tartrate 25 mg twice a day, he seems to be tolerating it. 4. We will continue monitoring his laboratory tests.
--- NOTE | 2017-03-09 15:15 | Cardiology Follow-Up ---
Cardiology Follow-Up Date of Service Mar 09, 2017. Cardiology Follow-Up SUBJECTIVE: 56-year-old man with mild cardiomyopathy and recurrent ventricular tachycardia ( status post ICD) who was admitted 03/07/2017 with further episodes of ventricular tachycardia Which elicited 3 separate ICD shocks. He is followed by Dr. Higuera, who saw him in consultation and initiated both oral and IV amiodarone. Uneventful night, monitor shows only 3 and 4 beat runs of ventricular tachycardia with nothing sustained. He feels well presently, no chest discomfort, dyspnea, or palpitations. Ambulating about the hallways without difficulty. PHYSICAL EXAMINATION: No distress. Vitals: BP 144/85, pulse 68 and regular, respirations 18 and nonlabored. Skin: No unusual lesions or ecchymosis. HEENT: Unremarkable. Neck: Jugular venous pulse at the clavicle at 90, no carotid bruits. Lungs: Clear and equal breath sounds bilaterally. No wheezing or crackles. Cardiac: Regular rhythm with normal S1 and S2. No murmur or gallop. Abdomen: Benign. Extremities: Nontender without edema. Intact peripheral pulses. Neurologic: Normal affect, nonfocal DATA: ECG today showed sinus rhythm at 69 ppm with occasional PVCs, otherwise unremarkable. QTC interval was 0.47. Potassium 3.9. Magnesium 2.2. IMPRESSION: 1. Ventricular tachycardia, no sustained recurrence on IV/p.o. amiodarone ( loading). 2. Mild nonischemic cardiomyopathy (EF 45-50%). 3. Single-chamber ICD. 4. No evidence of CAD (catheterization October 2016). DISCUSSION: Hemodynamically stable with only short, nonsustained runs of ventricular tachycardia during IV/p.o. amiodarone loading. Continue current regimen over the next 24 hours. Will continue to follow along.
[2017-03-10] MEDS: AMIODARONE / D5W 200 ML IV SCH (02:56)
[2017-03-10] MEDS: SODIUM CHLORIDE 0.9% 1000ML 1,000 ML IV SCH (03:00)
[2017-03-10 04:05] VITALS: BP 133/85; PULSE 68; TEMP 36.6; O2SAT 97
[2017-03-10 06:26] LABS: BASO % 0.3 %; BASO ABS # 0.03 K/uL (0-0.2); COMPLETE YES; EOS % 1.3 %; HEMATOCRIT 42.9 % (42-52); IG% 0.2 %; LYMPH % 18.5 %; MEAN CELL VOLUME 87.4 fL (80-100); MEAN CORPUSCULAR HEMOGLOBIN 30.1 pg (25-34); MEAN CORPUSCULAR HGB CONC 34.5 g/dl (32-36); MEAN PLATELET VOLUME 10.6 fL (7.4-10.4); MONO % 8.2 %; NEUT % 71.5 %; PLATELET COUNT 186 K/uL (130-400); RED BLOOD COUNT 4.91 M/uL (4.7-6.1); WHITE BLOOD COUNT 9.75 K/uL (4.8-10.8)
[2017-03-10 07:05] LABS: BUN/CREATININE RATIO 8.8 (10-20); CALCIUM 8.5 mg/dl (8.5-10.1); CREATININE 0.96 mg/dl (0.60-1.40); MAGNESIUM 2.2 mg/dl (1.8-2.4); POTASSIUM 3.8 mmol/L (3.5-5.1)
[2017-03-10] MEDS: ASPIRIN 81 MG ECTAB PO SCH (07:22)
[2017-03-10] MEDS: AMIODARONE 200 MG TAB PO SCH (07:22)
[2017-03-10] MEDS: POTASSIUM CHLORIDE 20 MEQ TABCR PO SCH (07:22)
[2017-03-10 07:55] VITALS: BP 143/92; PULSE 69; TEMP 36.6; O2SAT 97
[2017-03-10 08:21] VITALS: O2SAT 99
[2017-03-10] MEDS ORDERED: ASPEC81 PO (08:55)
[2017-03-10] MEDS ORDERED: LPR25 PO (08:55)
--- NOTE | 2017-03-10 08:59 | Discharge Instructions ---
Discharge Instructions Date of Service Mar 10, 2017. Admission Reason for Admission: Ventricular Tachycardia Discharge Discharge Diagnosis / Problem: Recurrent Ventricular Tachycardia Discharge Goals Goal(s): Decrease discomfort, Improve function, Increase independence, Improve disease control Activity Recommendations Activity Limitations: as noted below (Off work until Dr. Higuera releases you.) . Current Hospital Diet Patient's current hospital diet: AHA Diet (Heart Healthy) Discharge Diet Recommended Diet: AHA Diet (Heart Healthy) Pending Studies Studies pending at discharge: no Laboratory Results Lipid Panel Test 02/08/17 09:10 Range/Units Triglycerides Level 80 0-150 mg/dl Cholesterol Level 167 0-200 mg/dl HDL Cholesterol 58 mg/dl LDL Cholesterol Direct 103 mg/dl Cholesterol/HDL Ratio 2.9 LDL Cholesterol, Calculated mg/dl Medical Emergencies . Who to Call and When: Medical Emergencies: If at any time you feel your situation is an emergency, please call 911 immediately. . Non-Emergent Contact Non-Emergency issues call your: Primary Care Provider, [employer] . . "Provider Documentation" section prepared by Barak Barnett. . VTE Core Measure Inpt VTE Proph given/why not?: Treatment not indicated
[2017-03-10] MEDS ORDERED: [UNRECOGNIZED DRUG - REMARK] ONE (09:00)
[2017-03-10] MEDS: METOPROLOL TARTRATE 25 MG TAB PO SCH (09:06)
[2017-03-10 09:11] VITALS: BP 143/92; PULSE 69; TEMP 36.6; O2SAT 99
--- NOTE | 2017-03-10 10:07 | Cardiology Follow-Up ---
Cardiology Follow-Up Date of Service Mar 10, 2017. Cardiology Follow-Up SUBJECTIVE: 56-year-old man with mild cardiomyopathy and recurrent ventricular tachycardia ( status post ICD) who was admitted 03/07/2017 with further episodes of ventricular tachycardia which elicited 3 separate ICD shocks. He is followed by Dr. Higuera, who saw him in consultation and initiated both oral and IV amiodarone. Uneventful night, monitor showed no significant ectopy. He feels well presently, no chest discomfort, dyspnea, or palpitations. Ambulating about the hallways without difficulty. Plan is for discharge today. PHYSICAL EXAMINATION: No distress. Vitals: BP 143/92, pulse 69 and regular, respirations 16. Skin: No unusual lesions or ecchymosis. HEENT: Unremarkable. Neck: Jugular venous pulse at the clavicle at 90, no carotid bruits. Lungs: Clear and equal breath sounds bilaterally. No wheezing or crackles. Cardiac: Regular rhythm with normal S1 and S2. No murmur or gallop. Abdomen: Benign. Extremities: Nontender without edema. Intact peripheral pulses. Neurologic: Normal affect, nonfocal DATA: CBC unremarkable. Normal electrolytes with potassium 3.8 and magnesium 2.2. IMPRESSION: 1. Ventricular tachycardia, no recurrence overnight. 2. Mild nonischemic cardiomyopathy (EF 45-50%). 3. Single-chamber ICD. 4. No evidence of CAD (catheterization October 2016). DISCUSSION: Hemodynamically stable with no further significant ventricular ectopy or ventricular tachycardia. Okay for discharge on t.i.d. amiodarone 200 mg. Case discussed with Dr. Barnett. Follow up with Dr. Higuera.
--- NOTE | 2017-03-10 10:12 | PROGRESS NOTE ---
DATE: 03/10/2017 SUBJECTIVE: A 56-year-old male admitted with recurrent ventricular tachycardia. He has had prior ablations on 2 separate occasions and placement of a pacer defibrillator. The procedures were done at [facility]. He sees Dr. Higuera on a regular basis for his cardiology followup and control of his arrhythmias. The patient was admitted. He was started on IV amiodarone. He was seen by Dr. Higuera in cardiology consultation. Oral amiodarone was also added overlap for 48 hours with IV amiodarone. Overall, his condition is stable. He has not had any recurrent significant ventricular tachycardia. He did have times around the 4 beat, but no more complex than that. He is tolerating the amiodarone. He denied any headache or dizziness or lightheadedness. He is ambulating without any problem. No chest pain, pressure or tightness. No shortness of breath. No abdominal pain, no nausea, and no vomiting. No problem with his bowel movements or urination. PHYSICAL EXAMINATION: GENERAL: Well developed in no distress. VITAL SIGNS: Blood pressure 143/92, pulse 69, respirations 16, temperature 36.6, and oxygen saturation 97% on room air. SKIN: Warm and dry. No rash. HEENT: No evidence of any mucosal abnormalities. HEART: Regular heart sounds. No murmur, rub, or gallop. LUNGS: Clear. ABDOMEN: Soft and nontender without organomegaly or masses. BACK: No spinal tenderness. EXTREMITIES: No edema, clubbing, or cyanosis. LABORATORY TESTS: WBC count 9750, hemoglobin 14.8, hematocrit 42.9, and platelet count 186,000. Sodium 143, potassium 3.8, chloride 111, CO2 of 25, BUN 8, creatinine 0.96, glucose 87, calcium 8.5, and magnesium 2.2. ASSESSMENT: 1. Recurrent ventricular tachycardia. 2. Hypercholesterolemia. PLAN: 1. He is stable. He has not had any recurrence of his significant ventricular tachycardia. 2. He completed a 48-hour course of IV amiodarone this morning. 3. The patient was discharged home. He would continue the oral amiodarone as prescribed by Dr. Higuera. He already has a prescription at home and he started this actually the day he was admitted. 4. His metoprolol was increased to 25 mg twice a day. Prior to that, he was on 25 mg of metoprolol succinate one a day and I asked him for now to take the metoprolol succinate 25 mg twice a day. On the discharge instruction, it is indicated that he is on the metoprolol tartrate 25 twice a day, but I asked him not to get prescription for the tartrate at this point until he sees Dr. Higuera and decide what dose of beta bello is going to tolerate. 5. He took 1 dose of lorazepam 0.5 mg p.o. last night and it did help him relax. He is quite anxious about his condition and situation and going back to work. He was asking for prescription to keep it on hand just in case he needs it at home and I did write a prescription for lorazepam 0.5 mg twice a day as needed and gave him 40 tablets with 1 refill. 6. I instructed him to call Dr. Higuera's office tomorrow and schedule an appointment with him this coming week. Dr. Higuera will decide on the tapering protocol for his amiodarone and decide on the dose of the metoprolol and which form he is going to keep him on. 7. He was instructed to stay out of work until Dr. Higuera releases him to go back. 8. I will see him back in the office in the next 7-10 days. He will call in case of any problem.
--- NOTE | 2017-03-23 05:46 | DISCHARGE SUMMARY ---
DISCHARGE DIAGNOSES: 1. Recurrent ventricular tachycardia. 2. Hyperlipidemia. DISCHARGE MEDICATIONS: Include: 1. Aspirin 81 mg daily. 2. Metoprolol tartrate 25 mg twice a day. 3. Amiodarone 200 mg tablets to take two tablets three times a day for 5 days; then two tablets twice a day for 2 weeks and then 200 mg daily. CONSULTATION: Hardik Higuera DO in cardiology. HISTORY OF PRESENT ILLNESS: A 56-year-old male, admitted through the Emergency Room with recurrent ventricular tachycardia. The patient was first diagnosed in 2014 in September with ventricular tachycardia. He was admitted on 10/03/2015. He had recurrent episodes of lightheadedness with recurrent sustained ventricular tachycardia. This was thought to be right ventricular in nature. He was treated. Subsequently, he was seen by Dr. Higuera. He was referred to [facility]. He had an extensive evaluation. He had a cardiac catheterization. He did not have evidence of any coronary artery disease. He had a pacer defibrillator implanted in October 2016. He had prior ablation procedures on 2 separate occasions. He sees Dr. Higuera for close followup. He stated that, 2 days prior to his admission, he was cutting grass outside. He did experience an episode where he realized that the defibrillator discharged. On the day prior to his admission, he was doing fine throughout the day, but on the day of admission he had multiple episodes where the defibrillator discharged on 3 separate locations. Ambulance was called. He was brought to the Emergency Room. He was noted to be in ventricular tachycardia. Initially, his rate was quite rapid, but subsequently it stabilized and he was in the 70s and 60s. He did have ventricular tachycardia. He had no chest pain. No shortness of breath. No headache. No syncopal episodes. Earlier, on the day of admission, he was in touch with Dr. Higuera. He was on sotalol. His sotalol was discontinued. Dr. Higuera started him on amiodarone. He had 2 doses prior to his admission. He was also continued on metoprolol succinate 25 mg daily. In the Emergency Room, he was seen by Dr. Tay. He was started on IV amiodarone. He was also given metoprolol tartrate 2.5 mg IV. His ventricular tachycardia, resolved. He was resting comfortably. He continued to have short runs of V-tach with 2, 3 and 4 beats. The patient was admitted for further treatment. PAST MEDICAL HISTORY, SOCIAL HISTORY AND FAMILY HISTORY: All as noted. ALLERGIES: None. MEDICATIONS ON ADMISSION: All as noted on his home medication list. He had pain on simvastatin, but when the amiodarone was started Dr. Higuera discontinued it. PHYSICAL EXAMINATION AND ADMISSION LABORATORY TESTS: All as noted. HOSPITAL COURSE: The patient was admitted to PCU with telemetry. Resuscitation level 1. He was continued on IV amiodarone. He did receive IV metoprolol tartrate. His potassium was borderline low, was corrected. In addition to the amiodarone intravenously, he was also given metoprolol tartrate 2.5 mg IV every 6 hours. Cardiology consultation was requested. He was seen by Dr. Higuera. He was continued on IV amiodarone, changed to metoprolol tartrate 25 mg twice a day. The patient remained asymptomatic. He was resting comfortably. His monitor showed at times 2 beats of ventricular complexes, but not more than 4-beat ventricular tachycardia; rare occurrences. In addition to his IV amiodarone, he was started on loading dose of oral amiodarone with overlapping the IV and the oral doses for 48 hours as recommended. His condition remains stable. He was completely asymptomatic. He was tolerating his diet. He was ambulating. The patient was discharged home. Medications as noted above. He was to follow up with me in the office and also to follow up with Dr. Higuera. The goal at this time is to see how he does with the amiodarone and see if that controls his ventricular tachycardia. We will decide on any other treatment modalities in the future.
== END 2017-03-10 10:05 | disposition home or self-care (01) | DRG 309 ==
LOC: ENRESERVTM → ENRESERVDT → EDBD 19:53 → C.EDB 19:57 → C.2T 22:42
PROVIDERS: ADMIT Internal Medicine; ATTEND Internal Medicine
DX: I47.2 Ventricular tachycardia (principal); I42.9 Cardiomyopathy, unspecified; R00.0 Tachycardia, unspecified; E78.00 Pure hypercholesterolemia, unspecified; Z82.49 Family history of ischemic heart disease and other diseases of the circulatory system; Z83.3 Family history of diabetes mellitus; Z95.810 Presence of automatic (implantable) cardiac defibrillator; E87.6 Hypokalemia

== ENCOUNTER → 2017-08-20 | Outpatient (CLI) | payer BC ==
[~2017-08-20] MED LIST changes: +AMIO200T4 PO; +ASPEC81 PO; +LPR25 PO; -SIMV40TA2 PO; -SOTA120T; -TPRSR/25 PO
[2017-08-20 13:41] LABS: BLOOD UREA NITROGEN 20 mg/dl (7-18); BUN/CREATININE RATIO 16.9 (10-20); CARBON DIOXIDE 27 mmol/L (21-32); CHLORIDE 105 mmol/L (98-107); GLUCOSE 94 mg/dl (70-99); POTASSIUM 4.4 mmol/L (3.5-5.1); SODIUM 140 mmol/L (136-145)
[2017-08-20 13:52] LABS: CHOLESTEROL 280 mg/dl (0-200); CHOLESTEROL/HDL RATIO 4.6; HDL CHOLESTEROL 61 mg/dl; TRIGLYCERIDES 123 mg/dl (0-150); VERY LOW DENSITY LIPOPROT CALC 25 mg/dl
== END | disposition home or self-care (01) ==
LOC: C.LABSPEC 12:25
PROVIDERS: ATTEND Internal Medicine
DX: Z00.00 Encounter for general adult medical examination without abnormal findings (principal); E78.5 Hyperlipidemia, unspecified; R97.20 Elevated prostate specific antigen [PSA]

== ENCOUNTER → 2017-08-21 | Outpatient (CLI) | payer BC | END | disposition home or self-care (01) | LOC: C.LABSPEC 13:25 | PROVIDERS: ATTEND Internal Medicine | DX: Z12.11 Encounter for screening for malignant neoplasm of colon (principal) ==

== ENCOUNTER → 2018-03-03 | Outpatient (CLI) | payer BC ==
[~2018-03-03] MED LIST changes: -ASPEC81 PO; +ASPI-320 PO
[2018-03-03 14:00] LABS: BLOOD UREA NITROGEN 17 mg/dl (7-18); CALCIUM 8.8 mg/dl (8.5-10.1); CARBON DIOXIDE 25 mmol/L (21-32); CHOLESTEROL 265 mg/dl (0-200); CREATININE 1.32 mg/dl (0.60-1.40); GLUCOSE 93 mg/dl (70-99); POTASSIUM 3.7 mmol/L (3.5-5.1); SODIUM 138 mmol/L (136-145)
[2018-03-03 14:11] LABS: LDL CHOLESTEROL (DIRECT) 193 mg/dl
== END | disposition home or self-care (01) ==
LOC: C.LABSPEC 12:36
PROVIDERS: ATTEND Internal Medicine
DX: I10 Essential (primary) hypertension (principal); E78.5 Hyperlipidemia, unspecified

== ENCOUNTER 2021-03-10 21:12 | Observation (INO) ==
[2021-03-10] MEDS ORDERED: NITROGLYCERIN SL 0.4 MG/TAB TAB SL STA ×2 (22:17→22:56)
[2021-03-10 22:27] LABS: Basophils # (auto) 0.04 K/uL (0-0.2); Basophils % (auto) 0.4 %; Eosinophils # (auto) 0.28 K/uL (0-0.5); Eosinophils % (auto) 2.7 %; Hematocrit (blood only) 47.7 % (42-52); Hemoglobin 16.3 g/dL (14.0-18.0); Immature Granulocytes # (auto) 0.04 K/uL (0.00-0.02); Immature Granulocytes % (auto) 0.4 %; Lymphocytes # (auto) 2.85 K/uL (1.2-3.4); Lymphocytes % (auto) 27.6 %; Mean Corpuscular Hgb Conc 34.2 g/dL (32-36); Mean Corpuscular Volume 90.7 fL (80-100); Mean Platelet Volume 12.4 fL (7.4-10.4); Monocytes # (auto) 0.99 K/uL (0.11-0.59); Monocytes % (auto) 9.6 %; Neutrophils # (auto) 6.11 K/uL (1.4-6.5); Neutrophils % (auto) 59.3 %; Platelet Count 217 K/uL (130-400); RDW Coefficient of Variation 13.6 % (11.5-14.5); RDW Standard Deviation 44.8 fL (36.4-46.3); Red Blood Count 5.26 M/uL (4.7-6.1); White Blood Count 10.31 K/uL (4.8-10.8)
[2021-03-10 22:46] LABS: Partial Thromboplastin Ratio 0.9; Partial Thromboplastin Time 23.3 Seconds (21.0-31.0); Prothrombin Time 9.9 Seconds (9.0-12.0)
[2021-03-10] MEDS ORDERED: ASPIRIN CHEW 324 MG PO STA (22:56)
[2021-03-10 23:01] LABS: Alanine Aminotransferase 33 U/L (12-78); Albumin Globulin Ratio 1.1 (0.9-2); Albumin Level 3.9 gm/dl (3.4-5.0); Alkaline Phosphatase 71 U/L (45-117); Aspartate Aminotransferase 22 U/L (15-37); BUN Creatinine Ratio 17.3 (10-20); Bilirubin,Total 0.7 mg/dl (0.2-1); Blood Urea Nitrogen 24 mg/dl (7-18); Calcium 8.8 mg/dl (8.5-10.1); Carbon Dioxide 25 mmol/L (21-32); Chloride 107 mmol/L (98-107); Creatinine Clr Calc Pharmacy 55.6 ml/min; Est GFR (Non-African American) 53.5; Globulin 3.6 gm/dl (2.5-4.0); Glucose 104 mg/dl (70-99); Magnesium 2.1 mg/dl (1.8-2.4); Potassium 3.7 mmol/L (3.5-5.1); Sodium 141 mmol/L (136-145); Total Protein 7.5 gm/dl (6.4-8.2); Troponin I < 0.015 ng/ml (0-0.045)
--- NOTE | 2021-03-11 00:08 | History & Physical Report ---
Date of Service March 11, 2021 Assessment & Plan (1) Chest pain: 67-year-old male with a past medical history of nonischemic cardiomyopathy and paroxysmal V. tach status post defibrillator placement, chronic systolic heart failure with EF 40% admitted for ACS rule out. Chest pain Initial troponin negative, no signs of ischemia on EKG - heart score 3, low risk - nitro PRN, EKG with CP, - repeat troponin - interrogate defibrillator - ASA 325 in ED, daily 81 ASA, statin - daily ekg HFrEF - cont losartan, metoprolol, - Entresto can be started 48 hours after last losartan dose - would benefit from discussions regarding diet improvement with heart failure, CAD etc. Vtach - cont amiodarone Slurred speech - momentary episode with chest pain, CT head wo con negative - can consider MRI for TIA, but low suspicion DVT ppx: lovenox FEN/GI: heart healthy, low salt Code status: full code Dispo: PCU (2) Systolic heart failure: (3) Nonischemic cardiomyopathy: (4) Ventricular tachycardia (paroxysmal): History of Present Illness 60-year-old male with past medical history of nonischemic cardiomyopathy (EF 40%), paroxysmal V. tach status post defibrillator placement who presents to the emergency department for episode of chest pain. 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 Higuera told him he was not supposed to eat hot dogs anymore because he had 3 hot dogs the previous day. Earlier this evening around 8 PM he had a piece of fried chicken and soon afterwards felt pressurized chest pain. He denies this feeling like chicken was stuck in his chest, reflux, burning. Denies having eaten more than usual for dinner but does say that he had a rather large lunch [employer] today. Stated around this time he also experienced some blurring of vision and difficulty speaking. was at the bedside states that for some seconds to a minute he was slurring his speech and incomprehensible but that quickly went away on its own. They are able to call EMS and his pain was relieved in the ER with nitro. He has no history of stroke, denies any symptoms of numbness, tingling, weakness. He denies any history of a artery disease or diabetes. He states that approximately 3 years ago when he first had the episode of V. tach that required defibrillator placement he also had a cardiac catheterization at that time which was negative for any coronary artery disease. He denies the defibrillator going off earlier today. He does state that his appoint with Dr. Higuera they had discussed starting him on Entresto but he was unable to pick that up at the pharmacy today. Primary Care Provider: Barak Barnett MD Allergies Allergy/AdvReac Type Severity Reaction Status Date / Time No Known Allergies Allergy Verified 03/10/21 23:21 Home Medications Medication Instructions Recorded Confirmed Type amiodarone 200 mg PO QAM 03/10/21 03/10/21 History aspirin 81 mg PO QAM 03/10/21 03/10/21 History atorvastatin 40 mg PO QPM 03/10/21 03/10/21 History furosemide [Lasix] 0 mg PO DAILY PRN 03/10/21 03/10/21 History losartan 50 mg PO QAM 03/10/21 03/10/21 History metoprolol succinate 50 mg PO BID 03/10/21 03/10/21 History Past Med/Surg History Medical History Nonischemic cardiomyopathy EF 40%, 07/2020 Systolic heart failure Surgical History S/P ablation of ventricular arrhythmia ablation of right and left ventrice 12/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 Family History (Updated 03/11/21 @ 04:28 by Yoana Catherine MD) Brother Heart disease Father Heart failure Mother Heart disease Social History Smoking Status: Never smoker Hx Alcohol Use: No Hx Substance Use: No Preferred Language: Bengali Communication Ability: Effective Collections Curator Required: No Beliefs That Will Affect Care: None Current Living Situation: Spouse Feels Safe at Home: Yes Safety Concerns: Feels Safe At This Time Assistive Devices: None Review of Systems Review of Systems: All systems reviewed & are unremarkable except as noted in Subjective Physical Exam Physical Exam: Constitutional: in no apparent distress, sitting comfortably in bed. Eyes: EOMI, pupils equal and reactive bilaterally, no scleral icterus Cardiac: RRR, no murmurs, gallops or rubs. Normal S1, S2, defibrillator in place Pulm: CTA BL, no wheezes, rhonchi, crackles or rubs, moving air well throughout both lungs Abd: soft, nontender, nondistended, normal bowel sounds, no rebound or guarding Extremities: 2+ peripheral pulses, no edema Neuro: no focal deficits, moving all 4 limbs, A&Ox3 Results & Data Results & Data ([facility]) Vital Signs (Past 12 Hours) Vital Signs Temp Pulse Pulse Resp BP BP Pulse Ox 03/10/21 22:53 64 20 135/85 94 03/10/21 22:06 66 20 155/69 H 96 03/10/21 21:49 67 20 163/102 H 99 03/10/21 21:16 36.2 C L 75 16 180/100 H 97 Laboratory Results WBC 10.31 K/uL (4.8-10.8) 03/10/21 21:40 RBC 5.26 M/uL (4.7-6.1) 03/10/21 21:40 Hgb 16.3 g/dL (14.0-18.0) 03/10/21 21:40 Hct 47.7 % (42-52) 03/10/21 21:40 MCV 90.7 fL (80-100) 03/10/21 21:40 MCH 31.0 pg (25-34) 03/10/21 21:40 MCHC 34.2 g/dL (32-36) 03/10/21 21:40 RDW Std Deviation 44.8 fL (36.4-46.3) 03/10/21 21:40 RDW Coeff of Citlaly 13.6 % (11.5-14.5) 03/10/21 21:40 Plt Count 217 K/uL (130-400) 03/10/21 21:40 MPV 12.4 fL (7.4-10.4) H 03/10/21 21:40 Immature Gran % (Auto) 0.4 % 03/10/21 21:40 Neut % (Auto) 59.3 % 03/10/21 21:40 Lymph % (Auto) 27.6 % 03/10/21 21:40 Roberts % (Auto) 9.6 % 03/10/21 21:40 Eos % (Auto) 2.7 % 03/10/21 21:40 Baso % (Auto) 0.4 % 03/10/21 21:40 Neut # (Auto) 6.11 K/uL (1.4-6.5) 03/10/21 21:40 Lymph # (Auto) 2.85 K/uL (1.2-3.4) 03/10/21 21:40 Roberts # (Auto) 0.99 K/uL (0.11-0.59) H 03/10/21 21:40 Eos # (Auto) 0.28 K/uL (0-0.5) 03/10/21 21:40 Baso # (Auto) 0.04 K/uL (0-0.2) 03/10/21 21:40 Immature Gran # (Auto) 0.04 K/uL (0.00-0.02) H 03/10/21 21:40 PT 9.9 Seconds (9.0-12.0) 03/10/21 21:40 INR 1.0 (0.9-1.1) 03/10/21 21:40 APTT 23.3 Seconds (21.0-31.0) 03/10/21 21:40 PTT Ratio 0.9 03/10/21 21:40 Sodium 141 mmol/L (136-145) 03/10/21 21:40 Potassium 3.7 mmol/L (3.5-5.1) 03/10/21 21:40 Chloride 107 mmol/L (98-107) 03/10/21 21:40 Carbon Dioxide 25 mmol/L (21-32) 03/10/21 21:40 Anion Gap 9.0 (3-11) 03/10/21 21:40 BUN 24 mg/dl (7-18) H 03/10/21 21:40 Creatinine 1.40 mg/dl (0.6-1.4) 03/10/21 21:40 Est Cr Clr Drug Dosing 55.6 ml/min 03/10/21 21:40 Est GFR ( Amer) 62.0 03/10/21 21:40 Est GFR (Non-Af Amer) 53.5 03/10/21 21:40 BUN/Creatinine Ratio 17.3 (10-20) 03/10/21 21:40 Glucose 104 mg/dl (70-99) H 03/10/21 21:40 Calcium 8.8 mg/dl (8.5-10.1) 03/10/21 21:40 Magnesium 2.1 mg/dl (1.8-2.4) 03/10/21 21:40 Total Bilirubin 0.7 mg/dl (0.2-1) 03/10/21 21:40 AST 22 U/L (15-37) 03/10/21 21:40 ALT 33 U/L (12-78) 03/10/21 21:40 Alkaline Phosphatase 71 U/L (45-117) 03/10/21 21:40 Troponin I < 0.015 ng/ml (0-0.045) 03/10/21 21:40 Total Protein 7.5 gm/dl (6.4-8.2) 03/10/21 21:40 Albumin 3.9 gm/dl (3.4-5.0) 03/10/21 21:40 Globulin 3.6 gm/dl (2.5-4.0) 03/10/21 21:40 Albumin/Globulin Ratio 1.1 (0.9-2) 03/10/21 21:40 COVID-19 Eval Order CovFluRsv at [facility] 03/11/21 00:30 SARS-CoV-2 (PCR) NEGATIVE (Negative) 03/11/21 00:30 Influenza Type A (PCR) Negative (Neg) 03/11/21 00:30 Influenza Type B (PCR) Negative (Neg) 03/11/21 00:30 RSV (RT-PCR) Negative (Neg) 03/11/21 00:30 Supervising Physician Co-Signing Physician Notes Patient seen and examined, chart reviewed, case discussed with Dr. Catherine and I agree with her assessment and plan as above. Patient afebrile, HD stable, NAD Heart - =S1/S2, regular, no m/r/g, no CW pain Lungs - CTA Abd - +BS, soft, NT/ND Ext- No edema Labs and images reviewed Resident Activity Tracking Resident Involvement: Resident Care Provided Care Provided: Adult Hospital Medicine (1) Systolic heart failure Heart failure chronicity: chronic Qualified Code(s): I50.22 - Chronic systolic (congestive) heart failure (2) Chest pain Chest pain type: unspecified Qualified Code(s): R07.9 - Chest pain, unspecified
[2021-03-11 01:40] LABS: Influenza A virus by PCR Negative (Neg); Influenza B virus by PCR Negative (Neg); RSV by PCR Negative (Neg); SARS CoV2 RNA(COVID-19) InHosp NEGATIVE (Negative)
[2021-03-11] MEDS ORDERED: ACETAMINOPHEN 325 MG TAB PO PRN (03:47)
[2021-03-11] MEDS ORDERED: FUROSEMIDE 20 MG TAB PO PRN (03:47)
[2021-03-11] MEDS ORDERED: ONDANSETRON INJ 2 MG/ML 2 ML VIAL IV PRN (03:47)
[2021-03-11] MEDS ORDERED: NITROGLYCERIN SL 0.4 MG/TAB TAB SL PRN (03:47)
--- NOTE | 2021-03-11 04:25 | Emergency Department Note ---
History of Present Illness General Chief complaint: TIA Symptoms Stated complaint: HIGH BLOOD PRESSURE Time Seen by Provider: 03/10/21 22:07 History of Present Illness Maximum Pain Intensity: 6 This 60-year-old presents to the ER complaining of chest pressure Location: Mid chest Quality: Pressure Severity: Moderate Duration: This evening Timing: Started 8 p.m. Context: Patient was concerned and came in Modifying factors: better with nitroglycerin; worse with nothing Patient states he also had a few seconds of slurred speech and double vision. Nothing prolonged in nature. The symptoms have all resolved. Patient denies exertional chest pain, dyspnea, fever, chills, numbness, tingling, localized weakness. Home Medications Medication Instructions Recorded Confirmed Type amiodarone 200 mg PO QAM 03/10/21 03/10/21 History aspirin 81 mg PO QAM 03/10/21 03/10/21 History atorvastatin 40 mg PO QPM 03/10/21 03/10/21 History furosemide [Lasix] 0 mg PO DAILY PRN 03/10/21 03/10/21 History losartan 50 mg PO QAM 03/10/21 03/10/21 History metoprolol succinate 50 mg PO BID 03/10/21 03/10/21 History Allergies Allergy/AdvReac Type Severity Reaction Status Date / Time No Known Allergies Allergy Verified 03/10/21 23:21 Past Med/Surg History Medical History Nonischemic cardiomyopathy EF 40%, 07/2020 Systolic heart failure Surgical History S/P ablation of ventricular arrhythmia ablation of right and left ventrice 12/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 Social History Smoking Status: Never smoker Hx Alcohol Use: No Hx Substance Use: No Preferred Language: Portuguese Communication Ability: Effective Cow Trimmer Required: No Beliefs That Will Affect Care: None Current Living Situation: Spouse Feels Safe at Home: Yes Safety Concerns: Feels Safe At This Time Assistive Devices: Glasses Review of Systems A total of 10 systems reviewed and were otherwise negative Physical Exam Vital Signs Vital Signs - 24 hr 03/10/21 21:16 03/10/21 21:29 03/10/21 21:40 Temperature 36.2 C L Temperature Source Temporal Artery Scan Pulse Rate 75 73 69 Pulse Rate [Bilateral Apical] Pulse Rate from SpO2 Sensor 76 71 Respiratory Rate 16 18 16 Respiratory Effort / Characteristics Non-Labored Spontaneous Respiratory Depth Normal Respiratory Pattern Regular Blood Pressure 180/100 H 178/97 H 163/102 H Blood Pressure [Left Arm] Blood Pressure Mean 126 124 122 Blood Pressure Mean [Left Arm] Blood Pressure Position Sitting Blood Pressure Position [Left Arm] Pulse Oximetry 97 97 98 Oxygen Delivery Method Room Air Sepsis Recent Fever Within 48 Hours No Sepsis New/Unexplained Change in Mental Status No Sepsis Action Taken by Nursing No Action Required 03/10/21 21:49 03/10/21 22:00 03/10/21 22:06 Temperature Temperature Source Pulse Rate 68 Pulse Rate [Bilateral Apical] 67 66 Pulse Rate from SpO2 Sensor 68 Respiratory Rate 20 12 20 Respiratory Effort / Characteristics Respiratory Depth Respiratory Pattern Blood Pressure 155/96 H Blood Pressure [Left Arm] 163/102 H 155/69 H Blood Pressure Mean 115 Blood Pressure Mean [Left Arm] 122 97 Blood Pressure Position Blood Pressure Position [Left Arm] Lying Pulse Oximetry 99 97 96 Oxygen Delivery Method Room Air Room Air Sepsis Recent Fever Within 48 Hours Sepsis New/Unexplained Change in Mental Status Sepsis Action Taken by Nursing 03/10/21 22:30 03/10/21 22:41 03/10/21 22:52 Temperature Temperature Source Pulse Rate 66 66 62 Pulse Rate [Bilateral Apical] Pulse Rate from SpO2 Sensor 67 65 62 Respiratory Rate 18 15 14 Respiratory Effort / Characteristics Respiratory Depth Respiratory Pattern Blood Pressure 160/104 H 140/91 135/85 Blood Pressure [Left Arm] Blood Pressure Mean 122 107 101 Blood Pressure Mean [Left Arm] Blood Pressure Position Blood Pressure Position [Left Arm] Pulse Oximetry 93 93 93 Oxygen Delivery Method Sepsis Recent Fever Within 48 Hours Sepsis New/Unexplained Change in Mental Status Sepsis Action Taken by Nursing 03/10/21 22:53 03/10/21 23:00 03/10/21 23:30 Temperature Temperature Source Pulse Rate 64 62 Pulse Rate [Bilateral Apical] 64 Pulse Rate from SpO2 Sensor 64 62 Respiratory Rate 20 13 16 Respiratory Effort / Characteristics Respiratory Depth Respiratory Pattern Blood Pressure 125/90 132/87 Blood Pressure [Left Arm] 135/85 Blood Pressure Mean 101 102 Blood Pressure Mean [Left Arm] 101 Blood Pressure Position Blood Pressure Position [Left Arm] Pulse Oximetry 94 95 97 Oxygen Delivery Method Room Air Sepsis Recent Fever Within 48 Hours Sepsis New/Unexplained Change in Mental Status Sepsis Action Taken by Nursing VITALS: Vitals are noted on the nurse's note and reviewed by myself. Vital signs stable. GENERAL: Pleasant male, in no acute distress, nondiaphoretic, well-developed well-nourished. SKIN: Capillary reflex less than 2 seconds. HEENT: Normocephalic. PERRLA. EOMI. Nares patent. Mucous membranes moist. Neck is supple without nuchal rigidity. HEART: Regular rate and rhythm LUNGS: Clear to auscultation bilaterally without wheezes, rales or rhonchi. No retractions or accessory muscle use. ABDOMEN: Positive bowel sounds x 4. Normal tympanic percussion. Soft, nontender, without masses or organomegaly. Perez sign negative. No guarding or rebound tenderness. MUSCULOSKELETAL: No gross musculoskeletal defects. 5-5 strength throughout. NEURO: Patient was alert and oriented to person place and time. Cranial nerves II through XII grossly intact. No pronator drift. Cerebellar exam intact. No focal neurological deficits. Course Administered Medications Discontinued Medications Aspirin (Aspirin Chew 324 Mg) 324 mg PO NOW STA Stop: 03/10/21 22:57 Last Admin: 03/10/21 23:22 Dose: 324 mg Documented by: [id number] Nitroglycerin (Nitroglycerin Sl 0.4 Mg/Tab Tab) 0.4 mg SL NOW STA Stop: 03/10/21 22:18 Last Admin: 03/10/21 22:31 Dose: 0.4 mg Documented by: [id number] Nitroglycerin (Nitroglycerin Sl 0.4 Mg/Tab Tab) 0.4 mg SL NOW STA Stop: 03/10/21 22:57 Last Admin: 03/10/21 23:22 Dose: Not Given Documented by: [id number] Medical Decision Making Medical Records Attestation: I reviewed the patient's medical records. Home Medications Current Medication List: was personally reviewed by me Laboratory Data Attestation: I reviewed the patient's lab results. Result diagrams: 03/10/21 21:40 03/10/21 21:40 Lab Results 03/10/21 03/10/21 03/10/21 Range/Units 21:40 21:40 21:40 WBC 10.31 (4.8-10.8) K/uL RBC 5.26 (4.7-6.1) M/uL Hgb 16.3 (14.0-18.0) g/dL Hct 47.7 (42-52) % MCV 90.7 (80-100) fL MCH 31.0 (25-34) pg MCHC 34.2 (32-36) g/dL RDW Std Deviation 44.8 (36.4-46.3) fL RDW Coeff of Citlaly 13.6 (11.5-14.5) % Plt Count 217 (130-400) K/uL MPV 12.4 H (7.4-10.4) fL Immature Gran % (Auto) 0.4 % Neut % (Auto) 59.3 % Lymph % (Auto) 27.6 % Murray % (Auto) 9.6 % Eos % (Auto) 2.7 % Baso % (Auto) 0.4 % Neut # (Auto) 6.11 (1.4-6.5) K/uL Lymph # (Auto) 2.85 (1.2-3.4) K/uL Murray # (Auto) 0.99 H (0.11-0.59) K/uL Eos # (Auto) 0.28 (0-0.5) K/uL Baso # (Auto) 0.04 (0-0.2) K/uL Immature Gran # (Auto) 0.04 H (0.00-0.02) K/uL PT 9.9 (9.0-12.0) Seconds INR 1.0 (0.9-1.1) APTT 23.3 (21.0-31.0) Seconds PTT Ratio 0.9 Sodium 141 (136-145) mmol/L Potassium 3.7 (3.5-5.1) mmol/L Chloride 107 (98-107) mmol/L Carbon Dioxide 25 (21-32) mmol/L Anion Gap 9.0 (3-11) BUN 24 H (7-18) mg/dl Creatinine 1.40 (0.6-1.4) mg/dl Est Cr Clr Drug Dosing 55.6 ml/min Est GFR ( Amer) 62.0 Est GFR (Non-Af Amer) 53.5 BUN/Creatinine Ratio 17.3 (10-20) Glucose 104 H (70-99) mg/dl Calcium 8.8 (8.5-10.1) mg/dl Magnesium 2.1 (1.8-2.4) mg/dl Total Bilirubin 0.7 (0.2-1) mg/dl AST 22 (15-37) U/L ALT 33 (12-78) U/L Alkaline Phosphatase 71 (45-117) U/L Troponin I < 0.015 (0-0.045) ng/ml Total Protein 7.5 (6.4-8.2) gm/dl Albumin 3.9 (3.4-5.0) gm/dl Globulin 3.6 (2.5-4.0) gm/dl Albumin/Globulin Ratio 1.1 (0.9-2) Imaging Data Attestation: I personally reviewed and interpreted this imaging study as follows: MDM Narrative Prior records/ancillary studies reviewed. Triage Nursing notes reviewed. Additional history obtained from family. The patient's history was concerning for chest pain. Differential diagnosis: Etiologies such as cardiac ischemia, aortic dissection, pulmonary embolism, pneumonia, pneumothorax, musculoskeletal, infections, pericarditis, myocarditis, esophageal rupture, gastrointestinal, as well as others were entertained. Physical examination: As above. ER treatment provided: An order was placed for continuous cardiac monitoring. The monitor shows a rate of 60-100 with a sinus rhythm. Aspirin, nitroglycerin On reassessment the patient felt better. Diagnostic interpretation by me: #1: EKG ordered for chest pain EKG: Normal sinus, left axis deviation, no acute ST-T wave changes, rate of 76. Impression normal sinus rhythm with a first-degree AV block and left axis deviation interpreted by myself I think arrhythmia is unlikely. EKG shows normal sinus rhythm with no interval abnormalities such as QT prolongation or WPW. There are no findings to suggest Brugada syndrome. Cardiac monitoring in the emergency department reveals no tachycardic or bradycardic dysrhythmia. Hypertrophic cardiomyopathy was considered but there are no clear historical elements pointing toward this. EKG is not suggestive. The QRS voltage is not extremely large and there are no suggestive Q waves. #2 the electrocardiogram was ordered for chest pain EKG: Normal sinus, left axis deviation, first-degree AV block, occasional PVC, rate of 62. Impression normal sinus rhythm with a left axis deviation and a first-degree block interpreted by myself I think arrhythmia is unlikely. EKG shows normal sinus rhythm with no interval abnormalities such as QT prolongation or WPW. There are no findings to suggest Brugada syndrome. Cardiac monitoring in the emergency department reveals no tachycardic or bradycardic dysrhythmia. Hypertrophic cardiomyopathy was considered but there are no clear historical elements pointing toward this. EKG is not suggestive. The QRS voltage is not extremely large and there are no suggestive Q waves. The labs revealed negative troponin Imaging studies: Chest x-ray with no acute consolidation, pneumothorax or free air per my interpretation CT HEAD: No acute intracranial hemorrhage, extra-axial fluid collection or mass-effect. No CT evidence of acute territorial infarct. Polypoid mucosal thickening versus mucus retention cyst in the right frontal sinus. Radiologist: Belen Girard M.D. HEART SCORE: Hx: high/mod/low suspicion: 1 ECG: ST depression/nonspecific changes/normal: 0 Age: Greater than 65/45-64/less than 45: 1 Risk factors: (Hypertension, hyperlipidemia, diabetes, coronary disease, tobacco use, cocaine use): 2 Troponin: Greater than 2 times normal limits/1-2 times normal limits/normal: 0 Total: 4 Consultation: A consultation was placed with the hospitalist. The case was discussed and diagnostics were reviewed. The patient was evaluated in the ER for further treatment. Exam and history seem consistent with chest pain with concerns for cardiac in etiology. Patient was pain-free to nitroglycerin. He does have heart disease. Medicine was consulted. Repeat EKG is unchanged. He will be admitted. By the evaluation outlined above emergent etiologies such as aortic dissection, pulmonary embolism, pneumonia, pneumothorax, infections, pericarditis, myocarditis, gastrointestinal, as well as others were deemed relatively unlikely. The pt informed about the findings as listed above. All questions were answered and pleased with the treatment. The chart was completed utilizing [employer] Speech voice recognition software. Grammatical errors, random word insertions, pronoun errors, and incomplete sentences are an occassional consequence of this system due to software limitations, ambient noise, and hardware issues. Any formal questions or concerns about the content, text, or information contained within the body of this dictation should be directly addressed to the physician patent legal assistant for clarification. Impression & Plan Chest pain Discharge Plan Visit Data Chief Complaint: TIA Symptoms Stated Complaint: HIGH BLOOD PRESSURE ED Provider: Allan Manning ED Midlevel Provider: Cher Collins Discharge Problem: Chest pain Patient Disposition: Admitted As Inpatient Condition: Good Discharge Instructions Interventions: ED Discharge Assessment Last Done: 03/11/21 02:49
--- NOTE | 2021-03-11 07:32 | CT Scan Report ---
CT SCAN OF THE BRAIN WITHOUT IV CONTRAST CLINICAL HISTORY: Strokelike symptoms. COMPARISON STUDY: No priors. TECHNIQUE: Unenhanced axial CT scan of the brain is performed from the vertex to the skull base. A d ose lowering technique was utilized adhering to the principles of ALARA. CT DOSE: 537.48 mGy.cm FINDINGS: Brain parenchyma: There is minimal microangiopathic change. There is no hemorrhage, mass effect, or e vidence of acute territorial ischemia by CT criteria. Gallagher-white matter differentiation is preserved. No extra-axial fluid collection is seen. Ventricles, sulci, cisterns: Normal in configuration. Intracranial vasculature: There is atherosclerotic calcification of the cavernous carotid arteries. Calvarium: Unremarkable. Sinuses and mastoids: There is opacification of the right frontal sinus. The remaining visualized par anasal sinuses are clear. The mastoid air cells are well pneumatized. Orbits: The bony orbits are grossly intact. IMPRESSION: There is no hemorrhage, mass effect, or evidence of acute territorial ischemia by CT campos dacosta. ACT 112: Negative or not required by law. Electronically signed by: David Thomas M.D. 03/11/2021 7:30 AM
--- NOTE | 2021-03-11 08:24 | Hospitalist Progress Note ---
Date of Service March 11, 2021 Assessment & Plan (1) Chest pain: 67-year-old male with a past medical history of nonischemic cardiomyopathy and paroxysmal V. tach status post defibrillator placement, chronic systolic heart failure with EF 40% admitted for ACS rule out. Chest pain troponin negative x2, no signs of ischemia on EKG - heart score 3, low risk - nitro PRN, EKG with CP, - interrogate defibrillator - ASA 325 in ED, daily 81 ASA, statin HFrEF - cont losartan, metoprolol, - Entresto can be started 48 hours after last losartan dose - would benefit from discussions regarding diet improvement with heart failure, CAD etc. Vtach - cont amiodarone Slurred speech - momentary episode with chest pain, CT head wo con negative - can consider MRI for TIA, but not sure if AICD is compatable DVT ppx: lovenox FEN/GI: heart healthy, low salt Code status: full code Dispo: PCU (2) Systolic heart failure: (3) Nonischemic cardiomyopathy: (4) Ventricular tachycardia (paroxysmal): Admission and Anticipated Discharge Date Admission Date: March 11, 2021 Results & Data Results & Data ([facility]) Vital Signs (Past 12 Hours) Vital Signs Temp Pulse Pulse Resp BP BP Pulse Ox 03/11/21 06:00 59 L 14 130/78 03/11/21 05:00 58 L 18 127/84 03/11/21 04:00 59 L 12 140/81 97 03/11/21 03:10 97.3 F L 89 18 130/91 97 03/11/21 03:06 65 19 130/91 97 03/11/21 02:30 53 L 18 125/82 97 03/11/21 02:00 55 L 12 129/81 97 03/11/21 01:30 58 L 13 128/80 98 03/11/21 01:00 61 16 131/91 97 03/11/21 00:38 60 12 138/90 97 03/10/21 23:30 62 16 132/87 97 03/10/21 23:00 64 13 125/90 95 03/10/21 22:53 64 20 135/85 94 03/10/21 22:52 62 14 135/85 93 03/10/21 22:41 66 15 140/91 93 03/10/21 22:30 66 18 160/104 H 93 03/10/21 22:06 66 20 155/69 H 96 03/10/21 22:00 68 12 155/96 H 97 03/10/21 21:49 67 20 163/102 H 99 03/10/21 21:40 69 16 163/102 H 98 03/10/21 21:29 73 18 178/97 H 97 03/10/21 21:16 97.2 F L 75 16 180/100 H 97 PG Care Time/CCT Total # of Minutes Spent Total Time Spent with Patient: Total time spent is greater than 50% in coordination of care (as documented) at patient's floor/unit and/or counseling patient: Coding Diagnoses Chest pain R07.9 Chest pain type: unspecified Systolic heart failure I50.22 Heart failure chronicity: chronic Nonischemic cardiomyopathy I42.8 Ventricular tachycardia (paroxysmal) I47.2 (1) Chest pain Chest pain type: unspecified Qualified Code(s): R07.9 - Chest pain, unspecified (2) Systolic heart failure Heart failure chronicity: chronic Qualified Code(s): I50.22 - Chronic systolic (congestive) heart failure
[2021-03-11] MEDS ORDERED: POLYETHYLENE (MIRALAX) 17 GM PACK PO SCH (09:00)
[2021-03-11] MEDS ORDERED: METOPROLOL SUCC 50MG EXT REL TAB PO SCH (09:00)
[2021-03-11] MEDS ORDERED: ASPIRIN 81 MG ECTAB PO SCH (09:00)
[2021-03-11] MEDS ORDERED: LOSARTAN POTASSIUM 50 MG TAB PO SCH (09:00)
[2021-03-11] MEDS ORDERED: AMIODARONE 200 MG TAB PO SCH (09:00)
--- NOTE | 2021-03-11 09:13 | XRay Report ---
XR chest 1V portable CLINICAL HISTORY: Chest pain. COMPARISON STUDY: Chest radiograph March 07, 2017. FINDINGS: Left subclavian pacer/AICD is in place. There is no pneumothorax or pleural effusion. There is no consolidation to suggest pneumonia. There is mild cardiomegaly. There is pulmonary vascular co ngestion with suspected mild pulmonary edema. IMPRESSION: Pulmonary vascular congestion with suspected mild pulmonary edema. ACT 112: Negative or not required by law. Electronically signed by: Sergio Woods M.D. 03/11/2021 9:11 AM
--- NOTE | 2021-03-11 13:21 | Billing Data ---
Date of Service March 11, 2021 Coding Level of Care Code 16931 OBS Care - Level 3
--- NOTE | 2021-03-11 17:04 | Discharge Summary ---
Date of Service March 11, 2021 Principal Diagnosis Atypical chest pain Discharge Exam The patient appeared well nourished and normally developed. Vital signs as documented. Head exam is normocephalic atraumatic no scleral icterus Neck is without JVD, thyromegaly, or carotid bruits. Lungs are clear to auscultation, no focal loss of breath sounds Cardiac exam, Rhythm is regular.. No murmurs, rubs or gallops. Abdominal exam reveals normal bowel sounds, soft non tender, no masses Extremities are nonedematous and both pedal pulses are present Neurologic exam is alert and oriented, no focal loss of strength or sensation Skin is without bruises or rashes Psychologically is without concerns for anxiety or depression Discharge Data Allergies Allergy/AdvReac Type Severity Reaction Status Date / Time No Known Allergies Allergy Verified 03/10/21 23:21 Consultations 03/11/21 00:06 ED Decision to Admit Stat Ordered Studies 03/10/21 22:18 CT head/brain wo con Urgent Hospital Course (1) Chest pain: 67-year-old male with a past medical history of nonischemic cardiomyopathy and paroxysmal V. tach status post defibrillator placement, chronic systolic heart failure with EF 40% admitted for ACS rule out. Chest pain troponin negative x2, no signs of ischemia on EKG - heart score 3, low risk -Discussed cardiac evaluation with this patient he request to go home he has a follow-up appointment with his primary care provider on Saturday no further chest discomfort in the unit was able ambulate without recurrence of his discomfort - ASA 325 in ED, daily 81 ASA, statin HFrEF - cont losartan, metoprolol, - would benefit from discussions regarding diet improvement with heart failure, CAD etc. Discussed with entry level installation technician consideration of transition to Entresto Vtach - cont amiodarone Slurred speech - momentary episode with chest pain, CT head wo con negative - can consider MRI for TIA, but AICD is not compatible with MRI Patient has follow-up appointments with his primary care provider and entry level installation technician in short order request to go home he is back to his baseline considering continuing disease on 5 medications of aspirin statin and good cardiovascular blood pressure control Code status: full code Dispo: PCU (2) Systolic heart failure: (3) Nonischemic cardiomyopathy: (4) Ventricular tachycardia (paroxysmal): Total Time Total Time Spent Total Time Spent (In Minutes): It required greater than 30 minutes to prepare this patient for discharge Discharge Plan Discharge Items Patient Disposition: Home - Self-Care Reason For Visit: CHEST PAIN/TIA Discharge Diagnosis: chest pain- resolved Condition on Discharge: Good Activity: Per Instructions section Activity Comment: eat a heart healthy diet and follow up with Dr Malachi Mock for diet insturti Non-emergency contact: Primary Care Provider Call non-emergency contact if: you have any medication questions, your symptoms worsen and you have a fever Follow-up/Referrals: Barak Barnett MD [Primary Care Provider] - Hardik Higuera DO [Physician] - Diet: Heart Healthy Addtl Attending Provider Instructions: please eat a heart healthy diet follow up with DR Malachi Mock as you have mentioned you have scheduled please notify Dr Hancock office of your admission to see if they would like to see you sooner than your sheduled appointment Pending Studies at Discharge: No Stand-Alone Forms: [employer], Smoking Cessation Medications and DC Order Prescriptions: Continued losartan 50 mg tablet 50 mg PO QAM RF: 0 atorvastatin 40 mg tablet 40 mg PO QPM RF: 0 amiodarone 200 mg tablet 200 mg PO QAM RF: 0 metoprolol succinate 50 mg tablet extended release 24 hr 50 mg PO BID RF: 0 aspirin 81 mg Tablet,Delayed Release (Dr/Ec) 81 mg PO QAM RF: 0 furosemide [Lasix] 20 mg Tablet 0 mg PO DAILY PRN (Reason: Fluid Retention) RF: 0 Discharge Orders: Discharge Order (Routine); Ordered 03/11/21 Ordered By: Angelo Holland/Other Patient Handouts: Eating Heart-Healthy Foods Admission Data Admit Date/Time: 03/11/21 00:05 Attending Provider: Angelo Huff Admit Provider: Yoana Catherine Primary Care Provider: Barak Barnett Other Providers: Amanda Negrete Other Interventions: Discharge Summary Assessment (RN) Last Done: 03/11/21 10:17 Coding Level of Care Code D/C Day Management >30 mins Diagnoses Chest pain R07.9 Chest pain type: unspecified Systolic heart failure I50.22 Heart failure chronicity: chronic Nonischemic cardiomyopathy I42.8 Ventricular tachycardia (paroxysmal) I47.2
[2021-03-11] MEDS ORDERED: ATORVASTATIN 40 MG TAB PO SCH (21:00)
--- NOTE | 2021-03-12 07:17 | Electrocardiogram Report ---
Test Reason : Blood Pressure : / mmHG Vent. Rate : 076 BPM Atrial Rate : 076 BPM P-R Int : 234 ms QRS Dur : 114 ms QT Int : 396 ms P-R-T Axes : 066 -41 037 degrees QTc Int : 445 ms Sinus rhythm with 1st degree A-V block Left axis deviation Possible Inferior infarct , age undetermined Possible Anteroseptal infarct , age undetermined Abnormal ECG When compared with ECG of 09-MAR-2017 07:15, Premature ventricular complexes are no longer Present Borderline criteria for Anteroseptal infarct are now Present Borderline criteria for Inferior infarct are now Present Confirmed by Chuck Hong ([id number]) on 03/12/2021 7:17:04 AM Referred By: REFERRED SELF Confirmed By:Chuck Hong
--- NOTE | 2021-03-12 07:22 | Electrocardiogram Report ---
Test Reason : Blood Pressure : / mmHG Vent. Rate : 062 BPM Atrial Rate : 062 BPM P-R Int : 256 ms QRS Dur : 110 ms QT Int : 432 ms P-R-T Axes : 027 -37 031 degrees QTc Int : 438 ms Sinus rhythm with 1st degree A-V block with occasional Premature ventricular complexes Left axis deviation Septal infarct (cited on or before 10-MAR-2021) Possible Inferior infarct Abnormal ECG When compared with ECG of 10-MAR-2021 21:31, Premature ventricular complexes are now Present Confirmed by Chuck Hong ([id number]) on 03/12/2021 7:21:33 AM Referred By: REFERRED SELF Confirmed By:Chuck Hong
--- NOTE | 2021-03-12 07:39 | Electrocardiogram Report ---
Test Reason : Blood Pressure : / mmHG Vent. Rate : 062 BPM Atrial Rate : 062 BPM P-R Int : 256 ms QRS Dur : 110 ms QT Int : 462 ms P-R-T Axes : 055 -41 019 degrees QTc Int : 468 ms Sinus rhythm with 1st degree A-V block with occasional Premature ventricular complexes Left axis deviation Septal infarct (cited on or before 10-MAR-2021) Cannot rule out Inferior infarct , age undetermined Nonspecific T wave abnormality Abnormal ECG When compared with ECG of 10-MAR-2021 22:59, No significant change was found Confirmed by Chuck Hong ([id number]) on 03/12/2021 7:39:26 AM Referred By: REFERRED SELF Confirmed By:Chuck Hong
== END 2021-03-11 10:50 | disposition home or self-care (01) ==
LOC: ED 21:12 → 1E 21:12 → SUATTDRO 03-11 00:05 → 1E 03-11 02:49